=== PATIENT | male | born 1975 | race Caucasian/White ===

== ENCOUNTER 2019-08-09 15:52 | Emergency (ER) | payer MEDICAID, OTHER ==
[~2019-08-09] VITALS: Ht 190.5 cm; Wt 106.8 kg
[~2019-08-09 15:52] MED LIST: LIDOcaine 1% W/epiNEPHrine 1:100,000 20ml vial ONE
[2019-08-09 16:25] VITALS: BP 137/93
[2019-08-09] MEDS ORDERED: TETanus/Pertussis (Acell)/Diphther VAC/PF (Tdap-Adult) 0.5ml syringe IM ONE (17:25)
[2019-08-09] MEDS ORDERED: HYDROcodone/acetaminophen 5mg/325mg tablet PO ONE (17:25)
--- NOTE | 2019-08-09 18:02 | NUR ---
SET UP FOR PROCEDURE. PT SOAKING FINGER IN SALINE AND BETADINE ORDERED BY PROVIDER.
[2019-08-09] MEDS ORDERED: CEPH-572 PO (18:04)
[2019-08-09] MEDS ORDERED: HYDR-3965 PO (18:39)
== END 2019-08-09 19:14 | disposition home or self-care (01) ==
LOC: ER 15:53
DX: S62.630B Displaced fracture of distal phalanx of right index finger, initial encounter for open fracture (principal); Z79.899 Other long term (current) drug therapy; W26.8XXA Contact with other sharp object(s), not elsewhere classified, initial encounter; Y93.89 Activity, other specified; Y92.89 Other specified places as the place of occurrence of the external cause; Y99.8 Other external cause status
CPT/HCPCS: 29130; 73140; 90471; 99283

== ENCOUNTER 2020-01-15 20:16 | Emergency (ER) | payer MEDICAID, OTHER ==
[~2020-01-15] VITALS: Ht 190.5 cm; Wt 120.0 kg
[2020-01-15 20:19] VITALS: BP 138/91
[2020-01-15] MEDS ORDERED: DOXYCYCLINE 100MG CAPSULE PO STA (21:00)
== END 2020-01-15 21:31 | disposition home or self-care (01) ==
LOC: ER 20:16
DX: S20.369A Insect bite (nonvenomous) of unspecified front wall of thorax, initial encounter (principal); W57.XXXA Bitten or stung by nonvenomous insect and other nonvenomous arthropods, initial encounter; Y93.89 Activity, other specified; Y92.89 Other specified places as the place of occurrence of the external cause; Y99.9 Unspecified external cause status
CPT/HCPCS: 99283

== ENCOUNTER 2020-07-09 10:25 | Day surgery (SDC) | payer MEDICAID ==
[2020-07-09] VITALS (14 sets, daily range): BP systolic 115–140; BP diastolic 72–93
[~2020-07-09] VITALS: Ht 193 cm; Wt 115.3 kg
[~2020-07-09 10:25] MED LIST changes: +ALBU8.5H8 INH; +ALLO100T PO; +BUPIVAcaine/PF 2.5 mg/ml (0.25%) 30ml vial ONE; +LIDOcaine 1% 30ml preserv. free vial ONE; -LIDOcaine 1% W/epiNEPHrine 1:100,000 20ml vial ONE; +LISI-600 PO; +OMEP20CA15 PO; +albuterol 2.5 MG/3 ML nebule NEB ONE; +ceFAZolin 2gm in dextrose, iso 50 ML IV ONE; +famotidine 20mg tablet PO ONE; +ringers solution, lacted 1,000 ML IV SCH
[2020-07-09] MEDS ORDERED: TRAZ-256 PO ×2 (11:21→12:11)
[2020-07-09 11:55] LABS: BASOPHILS # (AUTO) 0.1 X10'3 (0-0.2); BASOPHILS % (AUTO) 0.7 % (0-1); EOSINOPHILS # (AUTO) 0.1 X10'3 (0-0.9); EOSINOPHILS % (AUTO) 0.7 % (0-6); LYMPHOCYTES # (AUTO) 1.1 X10'3 (1.1-4.8); LYMPHOCYTES % (AUTO) 14.1 % (21-51); MEAN CORPUSCULAR HEMOGLOBIN 35.1 PG (27.0-31.0); MEAN CORPUSCULAR VOLUME 103.3 FL (78-98); MEAN PLATELET VOLUME 6.9 FL (7.4-10.4); MONOCYTES # (AUTO) 0.7 X10'3 (0-0.9); MONOCYTES % (AUTO) 8.6 % (2-12); NEUTROPHILS # (AUTO) 5.9 X10'3 (1.8-7.7); NEUTROPHILS % (AUTO) 75.9 % (42-75); PRE OP HEMATOCRIT 38.5 % (42.0-52.0); PRE OP HEMOGLOBIN 13.1 g/dL (14.0-17.9); PRE OP PLATELET COUNT 298 X10'3 (140-440); RED BLOOD COUNT 3.73 X10'6 (4.70-6.10); RED CELL DISTRIBUTION WIDTH 13.2 % (11.5-14.5)
[2020-07-09 12:09] LABS: ALBUMIN 3.3 G/DL (3.4-5.0); ALKALINE PHOSPHATASE 47 IU/L (46-116); BLOOD UREA NITROGEN 33 MG/DL (7-18); BUN/CREATININE RATIO 14.9 (5.4-32.0); CALCIUM 8.4 MG/DL (8.5-10.1); CHLORIDE 105 MMOL/L (99-107); CREATININE 2.21 MG/DL (0.60-1.10); PRE OP ALT 15 U/L (30-65); PRE OP ANION GAP 11 (8-16); PRE OP AST 12 U/L (10-37); PRE OP BILIRUB, TOTAL 0.4 MG/DL (0.0-1.0); PRE OP GLUCOSE 99 MG/DL (70-104); PRE OP SODIUM 137 MMOL/L (135-145); TOTAL CARBON DIOXIDE 21.4 MMOL/L (24-32); TOTAL PROTEIN 6.5 G/DL (6.4-8.2); eGFR 32 ML/MIN
[2020-07-09] MEDS ORDERED: dexamethasone sod phosphate 10mg/ml inj ONE (12:17)
[2020-07-09] MEDS ORDERED: sevoflurane 250ml liquid IH ONE (12:17)
[2020-07-09] MEDS ORDERED: ondansetron/PF 4mg/2ml inj ONE (12:17)
[2020-07-09] MEDS ORDERED: midazolam 2 mg/2 ml injection ONE (12:31)
[2020-07-09] MEDS ORDERED: fentaNYL/PF 50MCG/1 ML 2ML syringe ONE (12:31)
[2020-07-09] MEDS ORDERED: meperidine/PF 25mg/ml syringe ONE (12:32)
[2020-07-09] MEDS ORDERED: LIDOcaine 2% (20mg/ml) 5ml vial ONE (12:36)
[2020-07-09] MEDS ORDERED: rocuronium 10mg/ml inj IV ONE (12:36)
[2020-07-09] MEDS ORDERED: propofol inj 20 ML IV ONE ×2 (12:36→12:41)
[2020-07-09] MEDS ORDERED: ringers solution, lacted 1,000 ML IV SCH (13:31)
[2020-07-09] MEDS ORDERED: morphine 4 MG/ML inj SYRINge IV PRN (13:35)
[2020-07-09] MEDS ORDERED: ondansetron/PF 4mg/2ml inj IV PRN (13:35)
[2020-07-09] MEDS ORDERED: meperidine/PF 25mg/ml syringe IV PRN ×2 (13:35)
[2020-07-09] MEDS ORDERED: proCHLORperazine 10 MG/2 ml inj IV PRN (13:35)
[2020-07-09] MEDS ORDERED: morphine 2 MG/ML inj. syringe IV PRN (13:35)
[2020-07-09] MEDS ORDERED: ketorolac trometh. 30mg/ml inj. ONE (13:47)
--- NOTE | 2020-07-09 13:57 | NUR ---
RECEIVED FROM OR VIA [facility] ACCOMPANIED BY ANESTHESIOLOGIST DR QUARLES, REPORT GIVEN. PT DROWSY BUT AROUSES AND DENIES PAIN AT THIS TIME. 20 GAUGE PIV R HAND PATENT AND RUNNING LR AT 100 ML/HR. LG BANDAID X3 CDI TO ABD, ABD SOFT, SKIN PINK AND WARM, BRISK CAP REFILL, LANG, RESTING COMFORTABLY
[2020-07-09] MEDS ORDERED: HYDROcodone/acetaminophen 5mg/325mg tablet PO PRN (14:05)
[2020-07-09] MEDS: meperidine/PF 25mg/ml syringe IV PRN ×2 (14:11→14:23)
--- NOTE | 2020-07-09 15:27 | NUR ---
PT AWAKE AND ALERT WITH PAIN LEVEL OF 4 AT THIS TIME. ABLE TO TOLERATE FLUIDS, DRESS SELF, AMBULATE TO BATHROOM AND VOID. 20 GAUGE PIV R HAND DC/D CATH TIP INTACT. LG BANDAID X3 CDI TO ABD, ABD SOFT, SKIN PINK AND WARM, BRISK CAP REFILL, LANG, VSS. DISCHARGE INSTRUCTIONS GIVEN AND PT VERBALIZED UNDER STANDING. TRANSPORTED VIA WHEELCHAIR TO SPOUSE IN PRIVATE VEHICLE TO HOME.
== END 2020-07-09 15:27 | disposition home or self-care (01) ==
LOC: PAS 10:25
PROVIDERS: ATTEND Surgery
DX: K40.90 Unilateral inguinal hernia, without obstruction or gangrene, not specified as recurrent (principal); K43.9 Ventral hernia without obstruction or gangrene; I10 Essential (primary) hypertension; K21.9 Gastro-esophageal reflux disease without esophagitis; J45.909 Unspecified asthma, uncomplicated; M10.9 Gout, unspecified; E66.9 Obesity, unspecified; Z68.30 Body mass index [BMI] 30.0-30.9, adult; Z79.899 Other long term (current) drug therapy; F17.210 Nicotine dependence, cigarettes, uncomplicated; F12.90 Cannabis use, unspecified, uncomplicated; Z20.828 Contact with and (suspected) exposure to other viral communicable diseases
CPT/HCPCS: 36415; 49560; 49568; 49650; 80053; 82948; 85025; 87635; 93005; 94640; 94760; C1781; J1100; J1885; J2001; J2175; J2250; J2405; J2704; J3010; J3490; J7120; S2900; A4215; A4618

== ENCOUNTER 2021-06-21 11:09 | Emergency (ER) | payer MEDICAID ==
[~2021-06-21] VITALS: Ht 190.5 cm; Wt 91.2 kg
[~2021-06-21 11:09] MED LIST changes: +ALBU8.5H17 INH; -ALBU8.5H8 INH; -BUPIVAcaine/PF 2.5 mg/ml (0.25%) 30ml vial ONE; -LIDOcaine 1% 30ml preserv. free vial ONE; -LISI-600 PO; +LISI20TA28 PO; +TRAZ-256 PO; -albuterol 2.5 MG/3 ML nebule NEB ONE; -ceFAZolin 2gm in dextrose, iso 50 ML IV ONE; -famotidine 20mg tablet PO ONE; -ringers solution, lacted 1,000 ML IV SCH
[2021-06-21 12:16] LABS: CLARITY,URINE CLEAR (Clear); COLOR,URINE YELLOW (Yellow); GLUCOSE, URINE NEGATIVE (Neg); KETONES,URINE NEGATIVE (Neg); LEUKOCYTE ESTERASE ,URINE NEGATIVE (Neg); NITRITES, URINE NEGATIVE (Neg); OCCULT BLOOD,URINE TRACE-INTACT (Neg); PROTEIN,URINE >=300 mg/dl (Neg)
[2021-06-21 12:17] LABS: UA COLLECTION TYPE CLN CATCH MIDSTREAM
[2021-06-21 12:18] LABS: BASOPHILS % (AUTO) 0.3 % (0-1); EOSINOPHILS # (AUTO) 0.1 X10'3 (0-0.9); EOSINOPHILS % (AUTO) 0.9 % (0-6); HEMATOCRIT 41.3 % (42.0-52.0); HEMOGLOBIN 14.1 g/dl (14.0-17.9); LYMPHOCYTES # (AUTO) 0.8 X10'3 (1.1-4.8); LYMPHOCYTES % (AUTO) 9.4 % (21-51); MEAN CORPUSCULAR HEMOGLOBIN 36.6 PG (27.0-31.0); MEAN CORPUSCULAR HGB CONC 34.2 g/dL (33.0-36.5); MEAN CORPUSCULAR VOLUME 107.1 FL (78-98); MEAN PLATELET VOLUME 6.8 FL (7.4-10.4); MONOCYTES # (AUTO) 0.7 X10'3 (0-0.9); MONOCYTES % (AUTO) 8.6 % (2-12); NEUTROPHILS # (AUTO) 6.9 X10'3 (1.8-7.7); NEUTROPHILS % (AUTO) 80.8 % (42-75); PLATELET COUNT 314 X10'3 (140-440); RED BLOOD COUNT 3.85 X10'6 (4.70-6.10); RED CELL DISTRIBUTION WIDTH 13.3 % (11.5-14.5); WHITE BLOOD COUNT 8.6 X10'3 (4.5-11.0)
[2021-06-21 12:21] LABS: BACTERIA,URINE NONE SEEN /HPF (Neg); FINE GRANULAR CAST 0-3 /LPF (NEGATIVE); HYALINE CASTS 0-3 /LPF (NEGATIVE); MUCUS STRANDS NONE SEEN /LPF (Neg); RBC,URINE 0-2 /HPF (0-2); SQUAMOUS EPITHELIAL CELL,UR FEW /LPF (FEW); WBC,URINE 0-4 /HPF (0-4)
[2021-06-21 12:31] LABS: ALANINE AMINOTRANSFERASE 19 U/L (12-78); ALBUMIN 3.3 G/DL (3.4-5.0); ALKALINE PHOSPHATASE 46 IU/L (46-116); ANION GAP 10 (8-16); ASPARTATE AMINO TRANSFERASE 15 U/L (10-37); BILIRUBIN,TOTAL 0.4 MG/DL (0.1-1.0); BLOOD UREA NITROGEN 20 MG/DL (7-18); BUN/CREATININE RATIO 8.8 (5.4-32.0); CALCIUM 8.4 MG/DL (8.5-10.1); CHLORIDE 104 MMOL/L (99-107); CREATININE 2.28 MG/DL (0.60-1.10); GLUCOSE 110 MG/DL (70-104); LIPASE 288 U/L (73-393); POTASSIUM 4.5 MMOL/L (3.5-5.1); SODIUM 139 MMOL/L (135-145); TOTAL CARBON DIOXIDE 25.4 MMOL/L (24-32); TOTAL PROTEIN 6.7 G/DL (6.4-8.2); eGFR 31 ML/MIN
[2021-06-21 16:14] VITALS: BP 147/107
[2021-06-21] MEDS ORDERED: LIDOcaine Viscous 15ml cup MM ONE (16:35)
[2021-06-21] MEDS ORDERED: mag hydrox/Alum hydrox/simeth 30ml oral suspension PO ONE (16:35)
[2021-06-21] MEDS ORDERED: normal saline 1000ml 1,000 ML IV ONE (16:35)
[2021-06-21] MEDS ORDERED: pantoprazole 40mg Tablet.DR PO ONE (16:35)
[2021-06-21] MEDS ORDERED: ondansetron 4mg rapidly disintigrating tab PO ONE (16:35)
== END 2021-06-21 17:41 | disposition home or self-care (01) ==
LOC: ER 11:09
DX: R10.84 Generalized abdominal pain (principal); R14.0 Abdominal distension (gaseous); Z87.19 Personal history of other diseases of the digestive system; Z79.899 Other long term (current) drug therapy
CPT/HCPCS: 36415; 74176; 80053; 81001; 83690; 85025; 96360; 99284; J7030

== ENCOUNTER 2022-04-30 13:49 | Inpatient (IN) | payer MEDICAID ==
[~2022-04-30] VITALS: Ht 190.5 cm; Wt 101.0 kg
[2022-04-30] MEDS ORDERED: normal saline 1000ML IV soln IVB ONE ×2 (15:40→17:00)
[2022-04-30 16:07] LABS: CLARITY,URINE CLEAR (Clear); COLOR,URINE YELLOW (Yellow); GLUCOSE, URINE NEGATIVE (Neg); KETONES,URINE NEGATIVE (Neg); LEUKOCYTE ESTERASE ,URINE NEGATIVE (Neg); NITRITES, URINE NEGATIVE (Neg); OCCULT BLOOD,URINE SMALL (Neg); PH,URINE 5.5 (4.8-8.0); PROTEIN,URINE 100 mg/dl (Neg); UROBILINOGEN,URINE 0.2 E.U/dL (0.2-1.0)
[2022-04-30 16:11] LABS: UA COLLECTION TYPE NON-SPECIFIED
[2022-04-30 16:17] LABS: HYALINE CASTS 0-3 /LPF (NEGATIVE); MUCUS STRANDS FEW /LPF (Neg)
[2022-04-30 16:19] LABS: BACTERIA,URINE FEW /HPF (Neg); RBC,URINE 0-2 /HPF (0-2); SQUAMOUS EPITHELIAL CELL,UR MODERATE /LPF (FEW)
[2022-04-30 16:27] LABS: BASOPHILS % (AUTO) 0.4 % (0-1); EOSINOPHILS # (AUTO) 0.1 X10'3 (0-0.9); EOSINOPHILS % (AUTO) 1.5 % (0-6); HEMATOCRIT 36.4 % (42.0-52.0); HEMOGLOBIN 12.6 g/dl (14.0-17.9); LYMPHOCYTES # (AUTO) 1.5 X10'3 (1.1-4.8); LYMPHOCYTES % (AUTO) 18.9 % (21-51); MEAN CORPUSCULAR HGB CONC 34.6 g/dL (33.0-36.5); MEAN CORPUSCULAR VOLUME 104.2 FL (78-98); MEAN PLATELET VOLUME 6.7 FL (7.4-10.4); MONOCYTES % (AUTO) 12.9 % (2-12); NEUTROPHILS # (AUTO) 5.1 X10'3 (1.8-7.7); NEUTROPHILS % (AUTO) 66.3 % (42-75); PLATELET COUNT 247 X10'3 (140-440); WHITE BLOOD COUNT 7.7 X10'3 (4.5-11.0)
[2022-04-30 16:42] LABS: ALANINE AMINOTRANSFERASE 25 U/L (12-78); ALBUMIN 3.6 G/DL (3.4-5.0); ALBUMIN/GLOBULIN RATIO 1.1 (1.1-1.5); ALKALINE PHOSPHATASE 49 IU/L (46-116); ANION GAP 13 (8-16); ASPARTATE AMINO TRANSFERASE 69 U/L (10-37); BILIRUBIN,TOTAL 0.3 MG/DL (0.1-1.0); BLOOD UREA NITROGEN 56 MG/DL (7-18); BUN/CREATININE RATIO 11.2 (5.4-32.0); CALCIUM 8.7 MG/DL (8.5-10.1); CHLORIDE 104 MMOL/L (99-107); CREATININE 4.98 MG/DL (0.60-1.10); GLUCOSE 104 MG/DL (70-104); MAGNESIUM 2.2 MG/DL (1.5-2.4); POTASSIUM 5.1 MMOL/L (3.5-5.1); SODIUM 138 MMOL/L (135-145); TOTAL CARBON DIOXIDE 20.8 MMOL/L (24-32); TOTAL PROTEIN 6.8 G/DL (6.4-8.2); eGFR 13 ML/MIN
[2022-04-30] MEDS ORDERED: TRAZ-256 PO (18:08)
[2022-04-30] MEDS ORDERED: ALBU8.5H17 IH (18:08)
[2022-04-30] MEDS ORDERED: LISI20TA28 PO (18:08)
[2022-04-30] MEDS ORDERED: OMEP40CA21 PO (18:08)
[2022-04-30] MEDS ORDERED: ALLO100T56 PO (18:08)
[2022-04-30 18:31] LABS: CREATINE KINASE 4591 U/L (39-308)
[2022-04-30 19:09] LABS: URINE AMPHETAMINE SCREEN NEGATIVE (Neg); URINE BARBITUATE SCREEN NEGATIVE (Neg); URINE BENZODIAZEPINES SCREEN NEGATIVE (Neg); URINE CANNABINOID SCREEN POSITIVE (Neg); URINE COCAINE SCREEN NEGATIVE (Neg); URINE METHADONE SCREEN NEGATIVE (Neg); URINE OPIATE SCREEN NEGATIVE (Neg); URINE PHENCYCLIDINE SCREEN NEGATIVE (Neg)
[2022-04-30] MEDS ORDERED: magnesium hydroxide 30ml (MOM) UD suspension PO PRN (19:45)
[2022-04-30] MEDS ORDERED: HYDROcodone/acetaminophen 5mg/325mg tablet PO PRN (19:45)
[2022-04-30] MEDS ORDERED: potassium CL 10mEq/100ml bag 100 ML IV PRN (19:45)
[2022-04-30] MEDS ORDERED: magnesium Cl slow-release 64mg tablet PO PRN (19:45)
[2022-04-30] MEDS ORDERED: mag hydrox/Alum hydrox/simeth 30ml oral suspension PO PRN (19:45)
[2022-04-30] MEDS ORDERED: diphenhydrAMINE 25mg capsule PO PRN (19:45)
[2022-04-30] MEDS ORDERED: magnesium 2GM in 50ml NS 50 ML IV PRN (19:45)
[2022-04-30] MEDS ORDERED: magnesium 4gm in 100ml NS 100 ML IV PRN (19:45)
[2022-04-30] MEDS: normal saline 1000ml 1,000 ML IV SCH (19:45)
[2022-04-30] MEDS ORDERED: HYDROcodone/acetaminophen 10/325mg tab PO PRN (19:45)
[2022-04-30] MEDS ORDERED: POTASSIUM BICARB 20meq eff tab 20 MEQ TABLET.EFF PO PRN ×2 (19:45)
[2022-04-30] MEDS ORDERED: acetaminophen 325mg tablet PO PRN ×2 (19:45)
[2022-04-30] MEDS ORDERED: ondansetron/PF 4mg/2ml inj IV PRN (19:45)
[2022-04-30] MEDS: K and/or MAG REPLACEMENT MC SCH (20:00)
[2022-04-30] MEDS ORDERED: albuterol 2.5 MG/3 ML nebule NEB PRN (20:05)
[2022-04-30 20:12] LABS: HEMOGLOBIN A1C 5.3 % (4.5-6.2)
[2022-04-30 20:14] LABS: TOTAL PROTEIN,URINE RANDOM 91.1 MG/DL
[2022-04-30 20:26] LABS: CLARITY,URINE CLEAR (Clear); COLOR,URINE YELLOW (Yellow); GLUCOSE, URINE NEGATIVE (Neg); KETONES,URINE NEGATIVE (Neg); LEUKOCYTE ESTERASE ,URINE NEGATIVE (Neg); NITRITES, URINE NEGATIVE (Neg); OCCULT BLOOD,URINE MODERATE (Neg); PROTEIN,URINE 30 mg/dl (Neg); UROBILINOGEN,URINE 0.2 E.U/dL (0.2-1.0)
[2022-04-30 20:48] LABS: UA COLLECTION TYPE CLN CATCH MIDSTREAM
[2022-04-30 20:50] LABS: BACTERIA,URINE NONE SEEN /HPF (Neg); RBC,URINE 0-2 /HPF (0-2); SQUAMOUS EPITHELIAL CELL,UR NONE SEEN /LPF (FEW); WBC,URINE 0-4 /HPF (0-4)
[2022-04-30] MEDS: docusate sod 100mg capsule PO SCH (20:58)
[2022-04-30] MEDS: traZODone 50mg tablet PO SCH (21:05)
[2022-04-30 21:33] LABS: UA EOSINOPHILS NO EOS /HPF
[2022-05-01 02:00] VITALS: BP 144/102
[2022-05-01 06:00] VITALS: BP 148/96
--- NOTE | 2022-05-01 06:30 | NUR ---
Patient in room PCU 3013. I have received report from LYNSEY Dickerson and had the opportunity to ask questions and assume patient care.
[2022-05-01] MEDS: heparin, porcine 5000 units/ml vial SQ SCH ×3 (07:12→16:58)
[2022-05-01] MEDS: normal saline 1000ml 1,000 ML IV SCH ×4 (07:12→16:57)
[2022-05-01 08:02] LABS: BASOPHILS % (AUTO) 0.5 % (0-1); EOSINOPHILS # (AUTO) 0.1 X10'3 (0-0.9); EOSINOPHILS % (AUTO) 2.5 % (0-6); HEMATOCRIT 35.5 % (42.0-52.0); HEMOGLOBIN 12.3 g/dl (14.0-17.9); LYMPHOCYTES # (AUTO) 1.1 X10'3 (1.1-4.8); LYMPHOCYTES % (AUTO) 19.6 % (21-51); MEAN CORPUSCULAR HEMOGLOBIN 36.5 PG (27.0-31.0); MEAN CORPUSCULAR HGB CONC 34.5 g/dL (33.0-36.5); MEAN CORPUSCULAR VOLUME 105.5 FL (78-98); MEAN PLATELET VOLUME 7.2 FL (7.4-10.4); MONOCYTES # (AUTO) 0.7 X10'3 (0-0.9); MONOCYTES % (AUTO) 12.6 % (2-12); NEUTROPHILS # (AUTO) 3.7 X10'3 (1.8-7.7); NEUTROPHILS % (AUTO) 64.8 % (42-75); PLATELET COUNT 230 X10'3 (140-440); RED BLOOD COUNT 3.36 X10'6 (4.70-6.10); RED CELL DISTRIBUTION WIDTH 13.2 % (11.5-14.5); WHITE BLOOD COUNT 5.7 X10'3 (4.5-11.0)
[2022-05-01 08:30] LABS: ALANINE AMINOTRANSFERASE 25 U/L (12-78); ALBUMIN 3.3 G/DL (3.4-5.0); ALBUMIN/GLOBULIN RATIO 1.1 (1.1-1.5); ALKALINE PHOSPHATASE 37 IU/L (46-116); ANION GAP 15 (8-16); ASPARTATE AMINO TRANSFERASE 68 U/L (10-37); BILIRUBIN,TOTAL 0.6 MG/DL (0.1-1.0); BLOOD UREA NITROGEN 48 MG/DL (7-18); CALCIUM 8.2 MG/DL (8.5-10.1); CHLORIDE 110 MMOL/L (99-107); CHOL/HDL RATIO 1.7 (0.00-4.99); CHOLESTEROL 243 MG/DL (0-200); CREATININE 4.01 MG/DL (0.60-1.10); GLUCOSE 94 MG/DL (70-104); HDL CHOLESTEROL 142 MG/DL (35-60); LDL CHOLESTEROL 65 MG/DL (50-100); MAGNESIUM 1.8 MG/DL (1.5-2.4); PHOSPHORUS 4.3 MG/DL (2.3-4.5); POTASSIUM 4.4 MMOL/L (3.5-5.1); SODIUM 142 MMOL/L (135-145); TOTAL PROTEIN 6.2 G/DL (6.4-8.2); TRIGLYCERIDES 99 MG/DL (20-135); eGFR 16 ML/MIN
[2022-05-01 10:00] VITALS: BP 153/95
[2022-05-01] MEDS: K and/or MAG REPLACEMENT MC SCH ×2 (10:49→20:00)
[2022-05-01] MEDS: docusate sod 100mg capsule PO SCH ×2 (10:49→20:00)
[2022-05-01] MEDS: pantoprazole 40mg Tablet.DR PO SCH (12:08)
[2022-05-01] MEDS: amLODIPine 5mg tablet PO SCH (12:08)
[2022-05-01 14:00] VITALS: BP 147/95
[2022-05-01 18:00] VITALS: BP 124/63
--- NOTE | 2022-05-01 18:30 | NUR ---
Problems reprioritized. Patient report given, questions answered & plan of care reviewed with LYNSEY Dickerson.
[2022-05-01] MEDS ORDERED: LORazepam 2 mg/ml vial IV PRN (19:55)
[2022-05-01] MEDS ORDERED: haloperidol 5mg tablet PO PRN (19:55)
[2022-05-01] MEDS ORDERED: haloperidol lactate 5mg/ml inj IM PRN (19:55)
[2022-05-01] MEDS ORDERED: LORazepam 1 MG tablet PO PRN (19:55)
[2022-05-01] MEDS ORDERED: thiamine 100mg/ml 2ml inj. IV SCH (21:00)
[2022-05-01] MEDS: traZODone 50mg tablet PO SCH (21:16)
[2022-05-01] MEDS: nicotine 14mg patch - 24hr TD SCH (21:18)
[2022-05-01 22:00] VITALS: BP 142/91
[2022-05-02] MEDS: normal saline 1000ml 1,000 ML IV SCH ×2 (00:01→07:54)
[2022-05-02] MEDS: heparin, porcine 5000 units/ml vial SQ SCH ×2 (00:01→07:54)
[2022-05-02 02:00] VITALS: BP 138/92
[2022-05-02 06:00] VITALS: BP 160/111
--- NOTE | 2022-05-02 06:10 | NUR ---
Patient in room PCU 3013. I have received report from LYNSEY Dickerson and had the opportunity to ask questions and assume patient care.
[2022-05-02 07:22] LABS: BASOPHILS % (AUTO) 0.6 % (0-1); EOSINOPHILS # (AUTO) 0.1 X10'3 (0-0.9); EOSINOPHILS % (AUTO) 2.4 % (0-6); HEMATOCRIT 36.9 % (42.0-52.0); HEMOGLOBIN 12.4 g/dl (14.0-17.9); LYMPHOCYTES # (AUTO) 1.3 X10'3 (1.1-4.8); LYMPHOCYTES % (AUTO) 22.5 % (21-51); MEAN CORPUSCULAR HEMOGLOBIN 35.9 PG (27.0-31.0); MEAN CORPUSCULAR HGB CONC 33.7 g/dL (33.0-36.5); MEAN CORPUSCULAR VOLUME 106.3 FL (78-98); MEAN PLATELET VOLUME 7.4 FL (7.4-10.4); MONOCYTES # (AUTO) 0.5 X10'3 (0-0.9); MONOCYTES % (AUTO) 8.3 % (2-12); NEUTROPHILS # (AUTO) 3.8 X10'3 (1.8-7.7); NEUTROPHILS % (AUTO) 66.2 % (42-75); PLATELET COUNT 229 X10'3 (140-440); RED BLOOD COUNT 3.47 X10'6 (4.70-6.10); RED CELL DISTRIBUTION WIDTH 12.9 % (11.5-14.5); WHITE BLOOD COUNT 5.7 X10'3 (4.5-11.0)
[2022-05-02] MEDS: docusate sod 100mg capsule PO SCH (07:32)
[2022-05-02] MEDS: amLODIPine 5mg tablet PO SCH (07:52)
[2022-05-02] MEDS: nicotine 14mg patch - 24hr TD SCH (07:53)
[2022-05-02] MEDS: pantoprazole 40mg Tablet.DR PO SCH (07:53)
[2022-05-02 07:54] LABS: ALANINE AMINOTRANSFERASE 27 U/L (12-78); ALBUMIN 3.1 G/DL (3.4-5.0); ALKALINE PHOSPHATASE 35 IU/L (46-116); ANION GAP 15 (8-16); ASPARTATE AMINO TRANSFERASE 74 U/L (10-37); BILIRUBIN,TOTAL 0.4 MG/DL (0.1-1.0); BLOOD UREA NITROGEN 35 MG/DL (7-18); BUN/CREATININE RATIO 11.6 (5.4-32.0); CALCIUM 8.3 MG/DL (8.5-10.1); CHLORIDE 110 MMOL/L (99-107); CREATININE 3.01 MG/DL (0.60-1.10); GLUCOSE 113 MG/DL (70-104); LIPASE 97 U/L (73-393); MAGNESIUM 1.4 MG/DL (1.5-2.4); PHOSPHORUS 3.2 MG/DL (2.3-4.5); POTASSIUM 4.4 MMOL/L (3.5-5.1); SODIUM 142 MMOL/L (135-145); TOTAL CARBON DIOXIDE 17.3 MMOL/L (24-32); TOTAL PROTEIN 6.3 G/DL (6.4-8.2); eGFR 22 ML/MIN
[2022-05-02 07:57] LABS: CREATINE KINASE 3808 U/L (39-308)
[2022-05-02] MEDS ORDERED: thiamine 100mg tablet PO SCH ×2 (08:00→13:00)
[2022-05-02] MEDS ORDERED: folic acid 1mg/0.2ml inj IV SCH (08:00)
[2022-05-02] MEDS ORDERED: multivitamins, therapeutics tablet PO SCH (08:00)
[2022-05-02] MEDS: folic acid 1mg tablet PO SCH ×2 (08:14→08:20)
[2022-05-02] MEDS: K and/or MAG REPLACEMENT MC SCH (08:22)
[2022-05-02 10:00] VITALS: BP 160/108
--- NOTE | 2022-05-02 14:10 | NUR ---
Pt states he wants to leave AMA. notified.
--- NOTE | 2022-05-02 14:25 | NUR ---
Pt leaving AMA. IV DC'd, tip intact. All belongings sent w/pt. Pt independently ambulated himself out of the hospital.
[2022-05-06] MEDS ORDERED: thiamine 100mg tablet PO SCH (08:00)
== END 2022-05-02 14:56 | disposition left against medical advice (07) | DRG 351 ==
LOC: ER 13:50 → UNDOADMIN 19:41 → ED HOLD 19:41 → PCU 3S 23:50
PROVIDERS: ADMIT Family Medicine; ATTEND Family Medicine
PROC: 5A09357 Assistance with Respiratory Ventilation, Less than 24 Consecutive Hours, Continuous Positive Airway Pressure (ICD-10-PCS; principal; 2022-05-01)
DX: M62.82 Rhabdomyolysis (principal); N17.0 Acute kidney failure with tubular necrosis; Q61.3 Polycystic kidney, unspecified; D53.9 Nutritional anemia, unspecified; Z20.822 Contact with and (suspected) exposure to COVID-19; F32.A Depression, unspecified; K21.9 Gastro-esophageal reflux disease without esophagitis; I10 Essential (primary) hypertension; E86.0 Dehydration; F10.20 Alcohol dependence, uncomplicated; F12.10 Cannabis abuse, uncomplicated; F17.210 Nicotine dependence, cigarettes, uncomplicated; G47.33 Obstructive sleep apnea (adult) (pediatric); J44.9 Chronic obstructive pulmonary disease, unspecified; Z53.29 Procedure and treatment not carried out because of patient's decision for other reasons; Z82.71 Family history of polycystic kidney; Z79.899 Other long term (current) drug therapy; Z71.6 Tobacco abuse counseling; Z71.41 Alcohol abuse counseling and surveillance of alcoholic; Z71.51 Drug abuse counseling and surveillance of drug abuser
CPT/HCPCS: 36415; 76770; 80053; 80061; 80305; 81001; 82550; 82570; 83036; 83690; 83735; 84100; 84145; 84156; 84295; 85025; 85610; 87077; 87081; 87088; 87207; 87635; 96360; 96361; 99285; C9803; G0378; J1644; J3411; J7030

== ENCOUNTER 2022-05-03 15:32 | Emergency (ER) | payer MEDICAID ==
[~2022-05-03] VITALS: Ht 190.5 cm; Wt 102.3 kg
[~2022-05-03 15:32] MED LIST changes: +ALBU8.5H17 IH; -ALBU8.5H17 INH; -ALLO100T PO; +ALLO100T56 PO; -OMEP20CA15 PO; +OMEP40CA21 PO
[2022-05-03 16:59] LABS: ALANINE AMINOTRANSFERASE 28 U/L (12-78); ALBUMIN 3.3 G/DL (3.4-5.0); ALKALINE PHOSPHATASE 42 IU/L (46-116); ANION GAP 10 (8-16); ASPARTATE AMINO TRANSFERASE 64 U/L (10-37); BILIRUBIN,TOTAL 0.2 MG/DL (0.1-1.0); BLOOD UREA NITROGEN 28 MG/DL (7-18); BUN/CREATININE RATIO 9.7 (5.4-32.0); CALCIUM 8.7 MG/DL (8.5-10.1); CHLORIDE 105 MMOL/L (99-107); GLUCOSE 106 MG/DL (70-104); POTASSIUM 4.5 MMOL/L (3.5-5.1); SODIUM 137 MMOL/L (135-145); TOTAL CARBON DIOXIDE 21.9 MMOL/L (24-32); TOTAL PROTEIN 6.5 G/DL (6.4-8.2); eGFR 23 ML/MIN
[2022-05-03 18:27] VITALS: BP 160/105
== END 2022-05-03 18:29 | disposition home or self-care (01) ==
LOC: ER 15:32
DX: I12.9 Hypertensive chronic kidney disease with stage 1 through stage 4 chronic kidney disease, or unspecified chronic kidney disease (principal); N18.9 Chronic kidney disease, unspecified
CPT/HCPCS: 36415; 80053; 93005; 99284

== ENCOUNTER 2023-02-03 10:27 | Day surgery (SDC) | payer MEDICAID ==
[2023-01-27 15:37] LABS: BASOPHILS % (AUTO) 0.5 % (0-1); EOSINOPHILS # (AUTO) 0.2 X10'3 (0-0.9); EOSINOPHILS % (AUTO) 2.6 % (0-6); LYMPHOCYTES # (AUTO) 1.3 X10'3 (1.1-4.8); LYMPHOCYTES % (AUTO) 21.1 % (21-51); MEAN CORPUSCULAR HEMOGLOBIN 34.7 PG (27.0-31.0); MEAN CORPUSCULAR VOLUME 102.3 FL (78-98); MEAN PLATELET VOLUME 6.8 FL (7.4-10.4); MONOCYTES # (AUTO) 0.8 X10'3 (0-0.9); MONOCYTES % (AUTO) 12.7 % (2-12); NEUTROPHILS % (AUTO) 63.1 % (42-75); PRE OP HEMATOCRIT 30.8 % (42.0-52.0); PRE OP PLATELET COUNT 235 X10'3 (140-440); RED BLOOD COUNT 3.01 X10'6 (4.70-6.10); RED CELL DISTRIBUTION WIDTH 13.3 % (11.5-14.5)
[2023-01-27 15:46] LABS: PRE OP HEMOGLOBIN 10.5 g/dL (14.0-17.9)
[2023-01-27 15:48] LABS: ALBUMIN 3.4 G/DL (3.4-5.0); ALBUMIN/GLOBULIN RATIO 1.1 (1.1-1.5); ALKALINE PHOSPHATASE 65 IU/L (46-116); BLOOD UREA NITROGEN 85 MG/DL (7-18); BUN/CREATININE RATIO 14.5 (10.0-20.0); CALCIUM 8.5 MG/DL (8.5-10.1); CHLORIDE 107 MMOL/L (99-107); CREATININE 5.88 MG/DL (0.60-1.10); PRE OP ALT 16 U/L (30-65); PRE OP ANION GAP 11 (8-16); PRE OP AST 21 U/L (10-37); PRE OP BILIRUB, TOTAL 0.2 MG/DL (0.0-1.0); PRE OP GLUCOSE 100 MG/DL (70-104); PRE OP POTASSIUM 4.9 MMOL/L (3.4-5.1); PRE OP SODIUM 139 MMOL/L (135-145); TOTAL CARBON DIOXIDE 21.4 MMOL/L (24-32); TOTAL PROTEIN 6.6 G/DL (6.4-8.2); eGFR 10 ML/MIN
[2023-01-27 15:59] LABS: CLARITY,URINE CLEAR (Clear); COLOR,URINE STRAW (Yellow); GLUCOSE, URINE NEGATIVE (Neg); KETONES,URINE NEGATIVE (Neg); LEUKOCYTE ESTERASE ,URINE NEGATIVE (Neg); NITRITES, URINE NEGATIVE (Neg); OCCULT BLOOD,URINE SMALL (Neg); PH,URINE 5.5 (4.8-8.0); PROTEIN,URINE 100 mg/dl (Neg); UA COLLECTION TYPE CLN CATCH MIDSTREAM; UROBILINOGEN,URINE 0.2 E.U/dL (0.2-1.0)
[2023-01-27 16:11] LABS: BACTERIA,URINE NONE SEEN /HPF (Neg); RBC,URINE 0-2 /HPF (0-2); WBC,URINE 0-4 /HPF (0-4)
[2023-01-27 16:12] LABS: SQUAMOUS EPITHELIAL CELL,UR NONE SEEN /LPF (FEW)
[2023-02-03] VITALS (14 sets, daily range): BP systolic 134–167; BP diastolic 82–108
[~2023-02-03] VITALS: Ht 190.5 cm; Wt 110.0 kg
[~2023-02-03 10:27] MED LIST changes: -ALBU8.5H17 IH; +DOCUMENT DATE & TIME OF BETA-BLOCKER PO ONE; -LISI20TA28 PO; +LISI40TA13 PO; +METO-395 PO; +cefazolin 2gm/D5W 100mL 100 ML IV ONE; +famotidine 20mg tablet PO ONE; +normal saline 1000ml 500 ML IV SCH
[2023-02-03 12:01] LABS: BASOPHILS % (AUTO) 0.3 % (0-1); EOSINOPHILS # (AUTO) 0.1 X10'3 (0-0.9); EOSINOPHILS % (AUTO) 1.5 % (0-6); HEMATOCRIT 32.4 % (42.0-52.0); HEMOGLOBIN 10.7 g/dl (14.0-17.9); LYMPHOCYTES # (AUTO) 0.8 X10'3 (1.1-4.8); LYMPHOCYTES % (AUTO) 13.4 % (21-51); MEAN CORPUSCULAR HEMOGLOBIN 33.7 PG (27.0-31.0); MEAN CORPUSCULAR VOLUME 102.2 FL (78-98); MEAN PLATELET VOLUME 6.9 FL (7.4-10.4); MONOCYTES # (AUTO) 0.7 X10'3 (0-0.9); MONOCYTES % (AUTO) 12.5 % (2-12); NEUTROPHILS # (AUTO) 4.1 X10'3 (1.8-7.7); NEUTROPHILS % (AUTO) 72.3 % (42-75); PLATELET COUNT 211 X10'3 (140-440); RED BLOOD COUNT 3.17 X10'6 (4.70-6.10); RED CELL DISTRIBUTION WIDTH 13.3 % (11.5-14.5); WHITE BLOOD COUNT 5.7 X10'3 (4.5-11.0)
[2023-02-03 12:15] LABS: ALANINE AMINOTRANSFERASE 16 U/L (12-78); ALBUMIN 3.4 G/DL (3.4-5.0); ALKALINE PHOSPHATASE 45 IU/L (46-116); ANION GAP 12 (8-16); ASPARTATE AMINO TRANSFERASE 19 U/L (10-37); BILIRUBIN,TOTAL 0.3 MG/DL (0.1-1.0); BLOOD UREA NITROGEN 75 MG/DL (7-18); BUN/CREATININE RATIO 13.4 (10.0-20.0); CHLORIDE 103 MMOL/L (99-107); CREATININE 5.58 MG/DL (0.60-1.10); GLUCOSE 121 MG/DL (70-104); POTASSIUM 4.6 MMOL/L (3.5-5.1); SODIUM 134 MMOL/L (135-145); TOTAL CARBON DIOXIDE 18.7 MMOL/L (24-32); TOTAL PROTEIN 6.9 G/DL (6.4-8.2); eGFR 11 ML/MIN
[2023-02-03] MEDS ORDERED: meperidine/PF 25mg/ml syringe IV PRN ×2 (12:25)
[2023-02-03] MEDS ORDERED: ondansetron/PF 4mg/2ml inj IV PRN (12:25)
[2023-02-03] MEDS ORDERED: ringers solution, lacted 1,000 ML IV SCH (12:25)
[2023-02-03] MEDS ORDERED: proCHLORperazine 10 MG/2 ml inj IV PRN (12:25)
[2023-02-03] MEDS ORDERED: morphine 2 MG/ML inj. syringe IV PRN (12:25)
[2023-02-03] MEDS ORDERED: BUPIVAcaine/PF 2.5 mg/ml (0.25%) 30ml vial ONE (13:26)
[2023-02-03] MEDS ORDERED: midazolam 1 mg/ML 2ml injection ONE (13:33)
[2023-02-03] MEDS ORDERED: fentaNYL/PF 50MCG/1 ML 2ML syringe ONE ×2 (13:33→14:05)
[2023-02-03] MEDS ORDERED: sevoflurane 250ml liquid IH ONE (13:34)
[2023-02-03] MEDS ORDERED: glycopyrrolate 0.2mg/ml inj ONE (13:34)
[2023-02-03] MEDS ORDERED: neostigmine methylsulfate 1 MG/ML 10ml vial ONE (13:34)
[2023-02-03] MEDS ORDERED: rocuronium 10mg/ml inj IV ONE ×2 (13:34→14:05)
[2023-02-03] MEDS ORDERED: propofol inj 20 ML IV ONE (13:37)
[2023-02-03] MEDS ORDERED: acetaminophen 1,000mg/100ml IV 100 ML IV ONE (13:51)
[2023-02-03] MEDS ORDERED: LIDOcaine 2% (20mg/ml) 5ml vial ONE (14:05)
[2023-02-03] MEDS ORDERED: ondansetron/PF 4mg/2ml inj ONE (14:05)
[2023-02-03] MEDS ORDERED: dexamethasone sod phosphate 4mg/ml inj. ONE (14:05)
[2023-02-03] MEDS ORDERED: heparin sodium, porcine/PF 100unit/ml 5ML syringe ONE (14:34)
[2023-02-03] MEDS ORDERED: mupirocin 2% ointment 22GM ONE (14:41)
[2023-02-03] MEDS ORDERED: meperidine/PF 25mg/ml syringe ONE (14:51)
--- NOTE | 2023-02-03 14:52 | NUR ---
Received from OR via [facility] TO RO[facility] 8 RECOVERY, accompanied by Anesthesiologist DR MONTIEL and report given by Anesthesiolgist. PT PRESENTS WITH 20G LEFT HAND, ABD DRESSING PJ, VSS. Addendum: 02/03/23 at 1513 by Monica Randall RN, RN Amended: Links added.
[2023-02-03] MEDS: morphine 4 MG/ML inj SYRINge IV PRN ×4 (15:05→15:19)
[2023-02-03] MEDS: meperidine/PF 25mg/ml syringe IV PRN ×3 (15:24→15:37)
[2023-02-03] MEDS ORDERED: HYDROcodone/acetaminophen 10/325mg tab PO ONE ×2 (15:35)
--- NOTE | 2023-02-03 17:02 | NUR ---
I HAVE REVIEWED D/C INSTRUCTIONS WITH PATIENT and they have verbalized understanding patient d/c home with all belongings and family gave transport home. Addendum: 02/03/23 at 1725 by Monica Randall RN, RN Amended: Links added.
== END 2023-02-03 17:02 | disposition home or self-care (01) ==
LOC: PAS 10:27
PROVIDERS: ATTEND Surgery
DX: I12.9 Hypertensive chronic kidney disease with stage 1 through stage 4 chronic kidney disease, or unspecified chronic kidney disease (principal); N18.4 Chronic kidney disease, stage 4 (severe); K42.9 Umbilical hernia without obstruction or gangrene; Z79.899 Other long term (current) drug therapy; M19.90 Unspecified osteoarthritis, unspecified site; Z98.890 Other specified postprocedural states; M10.9 Gout, unspecified; K21.9 Gastro-esophageal reflux disease without esophagitis; Z72.89 Other problems related to lifestyle
CPT/HCPCS: 36415; 49324; 71046; 80053; 81001; 82948; 85025; 93005; C1750; J0131; J0690; J1100; J1642; J2175; J2250; J2270; J2405; J2704; J3010; J3490; J7030; J7040; J7120; Z7506; Z7508; Z7512; A4215; A4618; A6449; A7000; J2710

== ENCOUNTER 2023-12-10 20:29 | Emergency (ER) | payer MEDICARE, MEDICAID ==
[~2023-12-10] VITALS: Ht 190.5 cm; Wt 120.5 kg
[~2023-12-10 20:29] MED LIST changes: -DOCUMENT DATE & TIME OF BETA-BLOCKER PO ONE; -cefazolin 2gm/D5W 100mL 100 ML IV ONE; -famotidine 20mg tablet PO ONE; -normal saline 1000ml 500 ML IV SCH
[2023-12-10 20:48] VITALS: BP 165/109; PULSE 80; RESP 17; TEMP 98.5; O2SAT 98
[2023-12-10 22:03] LABS: BASOPHILS % (AUTO) 0.7 % (0-1); EOSINOPHILS # (AUTO) 0.2 X10'3 (0-0.9); EOSINOPHILS % (AUTO) 3.4 % (0-6); HEMATOCRIT 33.6 % (42.0-52.0); HEMOGLOBIN 11.4 g/dl (14.0-17.9); LYMPHOCYTES # (AUTO) 1.6 X10'3 (1.1-4.8); MEAN PLATELET VOLUME 6.6 FL (7.4-10.4); MONOCYTES # (AUTO) 0.8 X10'3 (0-0.9); MONOCYTES % (AUTO) 13.9 % (2-12); PLATELET COUNT 228 X10'3 (140-440); RED BLOOD COUNT 3.17 X10'6 (4.70-6.10); RED CELL DISTRIBUTION WIDTH 14.3 % (11.5-14.5); WHITE BLOOD COUNT 5.6 X10'3 (4.5-11.0)
[2023-12-10 22:16] LABS: APTT 26 SECONDS (22-32); PROTHROMBIN TIME 9.8 SECONDS (9.0-12.0)
[2023-12-10 22:19] LABS: INR 0.9 INR
[2023-12-10 22:28] LABS: ALBUMIN 3.6 G/DL (3.4-5.0); ANION GAP 10 (8-16); BLOOD UREA NITROGEN 32 MG/DL (7-18); BUN/CREATININE RATIO 5.8 (10.0-20.0); CALCIUM 8.9 MG/DL (8.5-10.1); CHLORIDE 92 MMOL/L (99-107); CREATININE 5.49 MG/DL (0.60-1.10); GLUCOSE 90 MG/DL (70-104); MAGNESIUM 1.7 MG/DL (1.5-2.4); POTASSIUM 3.5 MMOL/L (3.5-5.1); PRO BRAIN NATRIURETIC PEPTIDE 883 PG/ML (0-125); SODIUM 130 MMOL/L (135-145); TOTAL CARBON DIOXIDE 27.8 MMOL/L (24-32); eCRCL 20 ML/MIN; eGFR 11 ML/MIN
== END 2023-12-10 23:12 | disposition home or self-care (01) ==
LOC: ER 20:30
DX: R51.9 Headache, unspecified (principal); T46.3X5A Adverse effect of coronary vasodilators, initial encounter; Y92.89 Other specified places as the place of occurrence of the external cause
CPT/HCPCS: 36415; 80048; 83735; 83880; 84484; 85025; 85610; 85730; 93005; 99284

== ENCOUNTER 2024-06-16 09:27 | Outpatient (CLI) | payer MEDICARE, MEDICAID | END 2024-06-16 23:59 | disposition home or self-care (01) | LOC: CARD DIAG 09:27 | PROVIDERS: ATTEND Family Medicine | DX: I08.8 Other rheumatic multiple valve diseases (principal); N18.6 End stage renal disease | CPT/HCPCS: 93306 ==

== ENCOUNTER 2025-03-16 11:27 | Inpatient (IN) | payer MEDICARE, MEDICAID ==
[~2025-03-16] VITALS: Ht 190.5 cm; Wt 109.9 kg
[2025-03-16 12:15] LABS: BASOPHILS % (AUTO) 0.2 % (0-1); EOSINOPHILS % (AUTO) 0 % (0-6); HEMATOCRIT 34.5 % (42.0-52.0); LYMPHOCYTES # (AUTO) 0.3 X10'3 (1.1-4.8); LYMPHOCYTES % (AUTO) 2.6 % (21-51); MEAN CORPUSCULAR HEMOGLOBIN 36.7 PG (27.0-31.0); MEAN CORPUSCULAR HGB CONC 34.7 g/dL (33.0-36.5); MEAN CORPUSCULAR VOLUME 105.8 FL (78-98); MEAN PLATELET VOLUME 7.4 FL (7.4-10.4); MONOCYTES # (AUTO) 0.4 X10'3 (0-0.9); MONOCYTES % (AUTO) 3.5 % (2-12); NEUTROPHILS # (AUTO) 9.5 X10'3 (1.8-7.7); NEUTROPHILS % (AUTO) 93.7 % (42-75); PLATELET COUNT 165 X10'3 (140-440); RED BLOOD COUNT 3.27 X10'6 (4.70-6.10); WHITE BLOOD COUNT 10.2 X10'3 (4.5-11.0)
[2025-03-16 12:29] LABS: ALANINE AMINOTRANSFERASE 24 U/L (12-78); ALBUMIN 2.5 G/DL (3.4-5.0); ALBUMIN/GLOBULIN RATIO 0.8 (1.1-1.5); ALKALINE PHOSPHATASE 49 IU/L (46-116); ANION GAP 8 (8-16); ASPARTATE AMINO TRANSFERASE 39 U/L (10-37); BILIRUBIN,TOTAL 0.7 MG/DL (0.1-1.0); BLOOD UREA NITROGEN 32 MG/DL (7-18); BUN/CREATININE RATIO 5.2 (10.0-20.0); CALCIUM 7.9 MG/DL (8.5-10.1); CHLORIDE 97 MMOL/L (99-107); CREATININE 6.11 MG/DL (0.60-1.10); GLUCOSE 117 MG/DL (70-104); SODIUM 133 MMOL/L (135-145); TOTAL CARBON DIOXIDE 27.9 MMOL/L (24-32); TOTAL PROTEIN 5.5 G/DL (6.4-8.2); eCRCL 17 ML/MIN; eGFR 10 ML/MIN
[2025-03-16 12:34] LABS: LIPASE > 375 U/L (16-77)
--- NOTE | 2025-03-16 14:18 | Physician Documentation ---
History of Present Illness Chief Complaint: Abdominal Pain w/vomiting Stated Complaint: ABD PAIN DIZZINESS WEAKNESS Time Seen by MD: 13:37 Primary Medical Doctor: ROMAN Source: patient Exam Limitations: no limitations HPI Chief Complaint: Abdominal pain Caveat: None Independent Historians: None History of Present Illness: Patient is a 49-year-old man with history of polycystic kidney disease, chronic renal failure on peritoneal dialysis and pancreatitis. Patient complains of diffuse abdominal pain, nausea, vomiting and diarrhea that began yesterday. Symptoms have gotten progressively worse. Patient believes it is similar to previous pancreatitis and is related to heavier than usual drinking. Patient's last alcohol consumption was last night. Patient denies any fever. No chest pain, no shortness a breath. Review of systems: All systems were reviewed and are negative except for what is indicated in the history of present illness. Past Medical History: Polycystic kidney disease, chronic renal failure, HTN, pancreatitis Past Surgical History: Hernia repair Social History: Daily alcohol use, marijuana use, denies tobacco use, denies other drug use Medications: Reviewed as documented Nursing Notes Allergies: Reviewed as documented in Nursing Notes Medication Reconciliation Allergies: Coded Allergies: No Known Allergies (Unverified , 12/10/23) Scheduled Allopurinol (Zyloprim), 2 TAB PO DAILY, (Reported) Lisinopril* (Lisinopril*), 1 TAB PO QAM, (Reported) Metoprolol Succinate (Metoprolol Succinate), 1 TAB PO DAILY, (Reported) Omeprazole (Prilosec), 1 CAP PO DAILY, (Reported) Trazodone HCl (Trazodone HCl), 1 TAB PO HS, (Reported) Past Medical History Past Medical History: No Pertinent History Past Surgical History: noncontributory Alcohol Use: Occasionally Drug Use: none Lives with: S/O Lives In: Home Review of Systems All Other Systems at this time: Reviewed and Negative ROS Patient denies any other acute symptoms other than above. All other systems are negative Physical Exam Vital Signs: RN Vital Signs have been reviewed: Yes, Temperature: 98.2, Source: Oral, Heart Rate: 77, Respiratory Rate: 15, BP: 105/85, Pulse Oximetry: 99, Darek ght: 109.900 Oxygen Flow Rate: 0 Pulse Oximetry Reflects: adequate oxygenation Physical Exam General Appearance: MILD DISTRESS HEENT: Normal OP, moist oral mucosa, PERRL, EOMI Neck: supple, normal ROM, trachea midline Pulmonary: No respiratory distress, CTA, BS equal Cardiac: RRR, no murmur, rub or gallop, GI: nondistended, soft, DIFFUSE TENDERNESS, normal bowel sounds, no guarding, no rebound, PERITONEAL DIALYSIS CATHETER PRESENT Extremities: normal ROM, no swelling, non-tender Skin: intact, dry, warm, no rashes Neuro: AAOx3, speech is clear, no focal motor weakness Psych: normal affect, good eye contact, no apparent hallucination, normal speech Progress Results/Orders Results/Orders Orders - HOWARD MAYER MD Urinalysis, Cult If Indicated (03/16/25 11:40) Morphine 4mg/Ml Inj. (Morphine Inj.) (03/16/25 13:50) Completed Orders - HOWARD MAYER MD Cbc/Diff (03/16/25 11:40) BMP (03/16/25 11:40) Lipase (03/16/25 11:40) CMP (03/16/25 11:40) Ondansetron Inj. (Zofran 4mg/2ml Vial) (03/16/25 13:50) Vital Signs 03/16/25 03/16/25 11:36 12:54 Temp 98.4 98.2 Pulse 89 77 Resp 16 15 B/P (MAP) 113/87 105/85 (92) Pulse Ox 99 99 O2 Flow Rate 0 Laboratory Tests Test 03/16/25 11:51 White Blood Count 10.2 Red Blood Count 3.27 L Hemoglobin 12.0 L Hematocrit 34.5 L Mean Corpuscular Volume 105.8 H Mean Corpuscular Hemoglobin 36.7 H Mean Corpuscular Hemoglobin Concent 34.7 Red Cell Distribution Width 14.0 Platelet Count 165 Mean Platelet Volume 7.4 Neutrophils (%) (Auto) 93.7 H Lymphocytes (%) (Auto) 2.6 L Monocytes (%) (Auto) 3.5 Eosinophils (%) (Auto) 0 Basophils (%) (Auto) 0.2 Neutrophils # (Auto) 9.5 H Lymphocytes # (Auto) 0.3 L Monocytes # (Auto) 0.4 Eosinophils # (Auto) 0.0 Basophils # (Auto) 0.0 CBC Comment Sodium Level 133 L Potassium Level 5.0 Chloride Level 97 L Carbon Dioxide Level 27.9 Anion Gap 8 Blood Urea Nitrogen 32 H Creatinine 6.11 H Estimated GFR/1.73 m2 10 BUN/Creatinine Ratio 5.2 L Glucose Level 117 H Calcium Level 7.9 L Total Bilirubin 0.7 Aspartate Amino Transf (AST/SGOT) 39 H Alanine Aminotransferase (ALT/SGPT) 24 Alkaline Phosphatase 49 Total Protein 5.5 L Albumin 2.5 L Globulin 3.0 Albumin/Globulin Ratio 0.8 L Lipase > 375 H Chemistry Comments Medical Decision Making Findings Differential diagnosis includes but is not limited to: ALCOHOLIC PANCREATITIS, GALLSTONE PANCREATITIS, PSEUDOCYST, DEHYDRATION, ELECTROLYTE ABNORMALITIES Laboratory data independent interpretation: CBC: CMP: Toxicology: Serology: Urinalysis: Emergency department course/medical decision-making: Consultation/communications: Departure Referrals: NO PRIMARY CARE PROVIDER (PCP) HOWARD MAYER MD March 16, 2025 14:18
[2025-03-16] MEDS: ondansetron/PF 4mg/2ml inj IV ONE (14:30)
[2025-03-16] MEDS: morphine 4 MG/ML inj SYRINge IV PRN (14:31)
--- NOTE | 2025-03-16 15:24 | RADIOLOGY REPORT ---
Exam: CT CT ABDOMEN PELVIS History: Abdominal Pain Comparison Study: None TECHNIQUE: Multidetector CT of the abdomen was performed from lung bases to pubic symphysis. Imaging was performed without IV contrast. Axial, coronal and sagittal multiplanar reformats were obtained fr om the axial data set by the technologist. Radiation Dose Information: CT Dose: CTDI volume is 33.57 mGy. Dose-length product is 1735.32 mGy*cm FINDINGS: Evaluation of solid organs is limited due to lack of intravenous contrast use. Findings: Lung Bases: No acute or significant lung base finding. Normal heart size. No pleural or pericardial effusion. Liver: The liver is normal in size. No focal lesions. Hepatic steatosis. Gallbladder and Biliary Tree: Unremarkable Spleen: Unremarkable Pancreas: Inflammatory stranding in the mesenteric fat surrounding the pancreas suggesting pancreatit is. 2.5 cm cystic lesion adjacent to the head of the pancreas may represent small pseudocyst or cyst ic neoplasm. Consider MRCP. Can not determine necrotic change to the pancreas without IV contrast. Adrenal Glands: Unremarkable Kidneys: Adult multi-cystic renal disease. Right kidney measures 19 cm in length. Left kidney measur es 19 cm in length. Peritoneal dialysis catheter in the pelvis. Bladder: Grossly unremarkable for degree of distention. Bowel: The stomach is grossly normal in appearance. Small bowel and colon are normal in caliber and d istribution. The appendix is not visualized; however, no secondary findings of acute appendicitis id entified. Ascites: Ascites in an umbilical hernia Lymphadenopathy: No mesenteric, retroperitoneal or periportal lymphadenopathy. Abdominal Wall and Mesentery: Unremarkable. Vasculature: The visualized abdominal aorta is normal in size and caliber. Evaluation of abdominal a nd pelvic vessels is limited due to lack of intravenous contrast. Pelvic Organs: Unremarkable Musculoskeletal: No aggressive focal bony lesions, acute fractures or dislocation. Soft tissues: Unremarkable IMPRESSION: 1. Findings suggesting pancreatitis, 2.5 cm cystic area adjacent to the head of the pancreas can not exclude pseudocyst or cystic neoplasm. Correlate with pancreatic enzymes. 2. Adult multi-cystic renal disease. 3. Right kidney measures 19 cm length. Left kidney measures 18.9 cm. 4. Ascites in the umbilical hernia, measuring 4 cm. 5. Peritoneal dialysis catheter in place. Radiation optimization: All CT scans at this facility use at least one of these dose optimization te chniques: automated exposure control mA and/or kV adjustment per patient size (includes targeted exa ms where dose is matched to clinical indication) or iterative reconstruction. HS:Y
--- NOTE | 2025-03-16 16:26 | HISTORY AND PHYSICAL ---
History & Physical Providers to Chief complaint, abdominal pain ~ History of Present Illness Reason for Admit\Complaint: As above History of Present Illness This is a 49-year-old man with history of polycystic kidney disease, chronic renal failure on peritoneal dialysis for the last two years and pancreatitis, history of anemia hemoglobin 12, COPD, ex-smoker, marijuana user, chronic CHF diastolic ejection fraction 70% 2023, pancreatic head cystic lesion, rule out cancer, end-stage renal disease, hepatic steatosis, presented today to emergency department chief complaint abdominal pain, in addition this is the Patient complains of diffuse abdominal pain, nausea, vomiting and nonbloody diarrhea that began yesterday. Symptoms have gotten progressively worse. Patient believes it is similar to previous pancreatitis and is related to heavier than usual drinking. Patient's last alcohol consumption was last night. Patient denies any fever. No chest pain, no shortness a breath. In emergency department he was evaluated by physician was diagnosed with acute pancreatitis and decision was made to admit patient for further evaluation and treatment, no additional complaint or concern. Allergies: Coded Allergies: No Known Allergies (Unverified , 12/10/23) Active prescriptions I reviewed reconciled Home Medications Home Medications Active Reported Metoprolol Succinate 25 Mg Tab.sr.24h 1 Tab PO DAILY Lisinopril* (Lisinopril) 40 Mg Tablet 1 Tab PO QAM 30 Days Zyloprim (Allopurinol) 100 Mg Tablet 2 Tab PO DAILY 30 Days Trazodone HCl 100 Mg Tablet 1 Tab PO HS 30 Days Prilosec (Omeprazole) 40 Mg Capsule 1 Cap PO DAILY Past Medical History Past Medical History As in HPI Past Surgical History Surgical History Comment As in HPI Past Social History Social History Comment Positive for chronic alcoholism including ongoing, deny illicit drug use except marijuana, ex-smoker, lives with the family good social support Health Maintenance Health Maintenance Noncontributory ROS ROS Constitutional : no fever , no chills, or weakness. No diaphoresis. Allergic/Immunologic, no lymphadenopathy, no hives, no skin eruptions. Eyes, no recent visual changes, no eye pain, no photophobia. Ears, nose, mouth, throat, no sore throat, no nosebleed, no ear pain. Cardiovascular, no palpitations, skipped beats, chest pain, no peripheral edema, Respiratory, no dyspnea, orthopnea, cough, hemoptysis, chest wall pain. Gastrointestinal, positive for abdominal pain, nausea, vomiting, nonbloody diarrhea. : no dysuria, hematuria, pelvic pain, urethral d/c. Endocrine, no polyuria, polydipsia, recent unintentional weight gain or loss. Hematologic/Lymphatic, no petechiae, no enlarged lymph nodes, no bone pain. Integumentary, no rash, no skin lesions, Musculoskeletal, no muscle aches, or pain, no muscle cramps, no recent change in gait Neurological, no dizziness, no headache, no syncope, no paresthesia. Psychiatric, no delusions, visual hallucinations, or hearing hallucinations. ROS - in rest is as in HPI. Exam Vitals: Vital Signs Date Time Temp Pulse Resp B/P (MAP) Pulse Ox O2 Delivery O2 Flow Rate FiO2 03/16/25 14:36 73 16 125/85 (98) 03/16/25 12:54 98.2 99 03/16/25 11:36 0 Vital signs, stable ,afebrile. Pulse Oximetry reflects adequate oxygenation. BMI is 30, weight 109 kilos General: well developed, well nourished. Awake , alert, and oriented x4, resting comfortably in the bed, in no acute distress . Skin: Warm, dry, no pallor, no rash or petechiae. HEENT: Atraumatic, normocephalic, EOMI, anicteric sclera B; pink conjunctiva; PERRLA, normal oropharynx, moist oral and nasal mucosa. Tympanic membrane , nose , throat clear. Neck: Trachea midline. Supple, full range of motion, no JVD, bruit , hepatojugular reflex , lymphadenopathy or masses, or other lesions Cardiac: Regular rhythm, regular rate no murmurs, rubs, or gallops. Normal S1 and S2, no S3 noticed. PMI is normal. Respiratory: Equal breath sounds bilaterally, no tachypnea; lungs clear to auscultation bilaterally, no wheezing ,rub or rales, or crackles. Chest wall is symmetric and without deformity. No signs of trauma. Chest wall is nontender. No signs of respiratory distress. Resonance is normal upon percussion bilaterally. Gastrointestinal: Abdomen symmetric, non-distended, soft, mild tenderness to palpation epigastric area, normal bowel sounds x4 quadrant, normoactive, no hepatosplenomegaly , no masses , no bruit, no flank pain bilaterally. No voluntary guarding, rebound, or rigidity. No tenderness to percussion. No pulsatile masses. Equal femoral pulses. No Flores's sign or McBurney point tenderness. Back; no CVA tenderness bilaterally, no deformities. Neck and back are without deformity as well. No tenderness noted on palpation of the spinous processes. Spinous processes are midline. Cervical, thoracic, and lumbar paraspinal muscles are not tender and are without spasm. : normal external genitalia, without lesions, swelling, masses or tenderness. Musculoskeletal: Extremities, normal range of motion, non-tender, muscle strength 5/5 x 4. Negative Homans signs bilaterally on lower extremity. Distal pulses full symmetrical, no clubbing, cyanosis , edema. Neurological: Speech is clear, alert, and oriented x 4. No motor or sensory deficit, deep tendon reflexes normal, cerebellar intact. Cranial nerves II-XII intact. Psych: Alert and or appropriate, normal affect. Vascular: Good distal pulses, which are equal x4; capillary refill less than 2 seconds. Lymphatic, no lymphadenopathy. Diagnostic Data Last Recorded Lab Results: 03/16/25 1151 03/16/25 1151 Advance Care Planning Advanced Care plannin - 30 Minutes Additional Plan Assessment Chronic alcohol abuse including ongoing chronic pancreatitis secondary to above in exacerbation Acute pancreatitis Cystic lesion pancreatic head, rule out cancer Acute diarrhea nonbloody End-stage renal disease secondary to polycystic kidney disease On peritoneal hemodialysis Hypertension fair control Anemia hemoglobin 12 Additional comorbidities, COPD, ex-smoker, history of marijuana use, chronic CHF diastolic ejection fraction 70% 2023, hepatic steatosis Non IV fluids, keep patient well hydrated euvolemic NPO Alcohol withdrawal protocol Additional lab work pending Substance use navigator consult I reconciled home medications IV Protonix DVT gastropathy prophylaxis addressed Date of Service: March 16, 2025 Billing Provider: BARON MCCALL MD Common Visit Codes: 28344-PKK/[id number] SAME DATE (HIGH) Secondary Visit Codes: [id number] CARE PLAN 30 MINUTES BARON MCCALL MD March 16, 2025 16:26
[2025-03-16] MEDS ORDERED: HYDROmorphone inj. 0.5 MG/0.5 ML DISP.SYRIN IV PRN (16:40)
[2025-03-16] MEDS ORDERED: haloperidol lactate 5mg/ml inj IM PRN (16:40)
[2025-03-16] MEDS ORDERED: HYDROcodone/acetaminophen 10/325mg tab PO PRN (16:40)
[2025-03-16] MEDS ORDERED: haloperidol 5mg tablet PO PRN (16:40)
[2025-03-16] MEDS ORDERED: LORazepam 2 mg/ml vial IV PRN (16:40)
[2025-03-16] MEDS ORDERED: dextrose 50%-water 50ml dispensing syringe IV PRN (16:40)
[2025-03-16] MEDS ORDERED: diphenhydrAMINE 50 mg/ml inj IV PRN (16:40)
[2025-03-16] MEDS ORDERED: mag hydrox/Alum hydrox/simeth 30ml oral suspension PO PRN (16:40)
[2025-03-16] MEDS ORDERED: potassium Cl 40MEQ/1/2NS 520ml 520 ML IV PRN (16:40)
[2025-03-16] MEDS ORDERED: diphenhydrAMINE 25mg capsule PO PRN (16:40)
[2025-03-16] MEDS ORDERED: metoclopramide 5 mg/ml inj IV PRN (16:40)
[2025-03-16] MEDS ORDERED: potassium Cl 20 mEq SR tablet PO PRN ×2 (16:40)
[2025-03-16] MEDS ORDERED: magnesium hydroxide 30ml (MOM) UD suspension PO PRN (16:40)
[2025-03-16] MEDS ORDERED: acetaminophen 325mg tablet PO PRN (16:40)
[2025-03-16] MEDS ORDERED: bisacodyl 10mg suppository rectal RC PRN (16:40)
[2025-03-16 17:09] LABS: HEMOGLOBIN A1C 4.8 % (4.5-6.2)
[2025-03-16 17:10] LABS: PHOSPHORUS 3.6 MG/DL (2.3-4.5); PRO BRAIN NATRIURETIC PEPTIDE 3807 PG/ML (0-125)
[2025-03-16 17:14] LABS: MAGNESIUM 0.7 MG/DL (1.5-2.4)
[2025-03-16 17:30] LABS: UA COLLECTION TYPE CLN CATCH MIDSTREAM
[2025-03-16 17:31] LABS: BILIRUBIN,URINE NEGATIVE (Neg); CLARITY,URINE CLEAR (Clear); COLOR,URINE YELLOW (Yellow); GLUCOSE, URINE NEGATIVE (Neg); KETONES,URINE NEGATIVE (Neg); LEUKOCYTE ESTERASE ,URINE NEGATIVE (Neg); NITRITES, URINE NEGATIVE (Neg); OCCULT BLOOD,URINE TRACE-INTACT (Neg); PH,URINE 7.5 (4.8-8.0); PROTEIN,URINE 100 mg/dl (Neg); UROBILINOGEN,URINE 0.2 E.U/dL (0.2-1.0)
[2025-03-16 17:36] LABS: APTT 24 SECONDS (22-32); INR 0.9 INR; PROTHROMBIN TIME 9.7 SECONDS (9.0-12.0)
[2025-03-16 17:37] LABS: URINE AMPHETAMINE SCREEN NEGATIVE (Neg); URINE BARBITUATE SCREEN NEGATIVE (Neg); URINE BENZODIAZEPINES SCREEN NEGATIVE (Neg); URINE CANNABINOID SCREEN POSITIVE (Neg); URINE COCAINE SCREEN NEGATIVE (Neg); URINE METHADONE SCREEN NEGATIVE (Neg); URINE OPIATE SCREEN NEGATIVE (Neg); URINE PHENCYCLIDINE SCREEN NEGATIVE (Neg)
[2025-03-16 17:39] LABS: BACTERIA,URINE FEW /HPF (Neg); SQUAMOUS EPITHELIAL CELL,UR FEW /LPF (FEW); WBC,URINE 0-4 /HPF (0-4)
[2025-03-16 17:40] LABS: MUCUS STRANDS NONE SEEN /LPF (Neg)
[2025-03-16 17:46] LABS: ETHANOL < 10 MG/DL (<10); THYROID STIMULATING HORMONE 3.25 ulU/ml (0.34-4.50)
[2025-03-16] MEDS: magnesium sulf-water 2g/50mL 50 ML IV PRN (18:55)
[2025-03-16] MEDS: dextrose 5%-1/2 normal saline 1,000 ML IV SCH (19:05)
[2025-03-16] MEDS: pantoprazole 40MG/NS 100ML BAG 100 ML IV SCH (20:00)
[2025-03-16] MEDS: K and/or MAG REPLACEMENT MC SCH (20:00)
[2025-03-16] MEDS: docusate sod 100mg capsule PO SCH (20:00)
[2025-03-16] MEDS: magnesium sulf-water 4G/100mL 100 ML IV PRN (20:07)
[2025-03-16] MEDS ORDERED: DILT-36 PO (20:11)
[2025-03-16] MEDS ORDERED: FURO40TA4 PO (20:11)
[2025-03-16] MEDS ORDERED: SODI650T29 PO (20:11)
[2025-03-16 20:40] VITALS: BP 141/88; PULSE 74; RESP 16; TEMP 97.9; O2SAT 95
[2025-03-16 22:00] VITALS: BP 130/92; PULSE 72; RESP 18; TEMP 98.1; O2SAT 97
[2025-03-16] MEDS: temazepam 15mg capsule PO PRN (22:07)
[2025-03-16] MEDS: heparin, porcine 5000 units/ml vial SQ SCH (22:08)
[2025-03-16] MEDS: ondansetron/PF 4mg/2ml inj IV PRN (22:08)
[2025-03-16] MEDS: thiamine 100mg/ml 2ml inj. IV SCH (22:08)
[2025-03-17] VITALS (18 sets, daily range): BP systolic 111–167; BP diastolic 57–109; PULSE 56–88; RESP 16–19; TEMP 97.4–98.7; O2SAT 95–99
[2025-03-17 06:09] LABS: BASOPHILS % (AUTO) 0 % (0-1); EOSINOPHILS % (AUTO) 0 % (0-6); HEMATOCRIT 28.1 % (42.0-52.0); HEMOGLOBIN 9.7 g/dl (14.0-17.9); LYMPHOCYTES # (AUTO) 0.6 X10'3 (1.1-4.8); LYMPHOCYTES % (AUTO) 6.3 % (21-51); MEAN CORPUSCULAR HEMOGLOBIN 36.7 PG (27.0-31.0); MEAN CORPUSCULAR HGB CONC 34.5 g/dL (33.0-36.5); MEAN CORPUSCULAR VOLUME 106.3 FL (78-98); MEAN PLATELET VOLUME 7.7 FL (7.4-10.4); MONOCYTES # (AUTO) 0.6 X10'3 (0-0.9); MONOCYTES % (AUTO) 6.4 % (2-12); NEUTROPHILS # (AUTO) 8.1 X10'3 (1.8-7.7); NEUTROPHILS % (AUTO) 87.3 % (42-75); PLATELET COUNT 118 X10'3 (140-440); RED BLOOD COUNT 2.64 X10'6 (4.70-6.10); RED CELL DISTRIBUTION WIDTH 14.3 % (11.5-14.5); WHITE BLOOD COUNT 9.3 X10'3 (4.5-11.0)
[2025-03-17 06:36] LABS: ALANINE AMINOTRANSFERASE 20 U/L (12-78); ALBUMIN 1.9 G/DL (3.4-5.0); ALBUMIN/GLOBULIN RATIO 0.7 (1.1-1.5); ALKALINE PHOSPHATASE 40 IU/L (46-116); ANION GAP 8 (8-16); ASPARTATE AMINO TRANSFERASE 24 U/L (10-37); BILIRUBIN,TOTAL 0.4 MG/DL (0.1-1.0); BLOOD UREA NITROGEN 35 MG/DL (7-18); CALCIUM 8.1 MG/DL (8.5-10.1); CHLORIDE 97 MMOL/L (99-107); CHOL/HDL RATIO 1.2 (0.00-4.99); CHOLESTEROL 152 MG/DL (0-200); CREATININE 5.85 MG/DL (0.60-1.10); GLUCOSE 137 MG/DL (70-104); HDL CHOLESTEROL 124 MG/DL (35-60); LDL CHOLESTEROL 17 MG/DL (50-100); MAGNESIUM 1.9 MG/DL (1.5-2.4); POTASSIUM 4.1 MMOL/L (3.5-5.1); SODIUM 133 MMOL/L (135-145); TOTAL CARBON DIOXIDE 27.6 MMOL/L (24-32); TOTAL PROTEIN 4.7 G/DL (6.4-8.2); TRIGLYCERIDES 31 MG/DL (20-135); eCRCL 18 ML/MIN; eGFR 10 ML/MIN
[2025-03-17] MEDS: pantoprazole 40 MG vial IV SCH (08:17)
[2025-03-17] MEDS: folic acid 1mg/0.2ml inj IV SCH (08:17)
[2025-03-17 11:01] LABS: LIPASE 231 U/L (16-77)
[2025-03-17] MEDS: morphine 2 MG/ML inj. syringe IV PRN (13:23)
[2025-03-17] MEDS: LIDOcaine 1% (10mg/ml) 2ml vial SQ ONE ×2 (14:35→15:25)
[2025-03-17] MEDS: LIDOcaine 1% (10mg/ml) 2ml vial ONE ×3 (15:30→15:32)
--- NOTE | 2025-03-17 16:58 | RADIOLOGY REPORT ---
CHEST RADIOGRAPH Indication: dialysis cath placed right IJ Technique: Single frontal view of the chest was obtained Comparison: None FINDINGS: Lines and Tubes: None Lungs: No focal consolidation. Pleura: No effusion. No pneumothorax. Cardiomediastinal contours: Unremarkable Bones: No acute osseous abnormality. IMPRESSION: 1. Compared to 01/27/2023 there is improved inspiratory effort. HS:Y
--- NOTE | 2025-03-17 17:17 | PROGRESS NOTE ---
Daily Progress Note Providers to CC ~ feels better today, less pain, resting comfortably in the bed Central Line/PICC still needed: No Smart-Non Protocol Smart Indications Met/Not Met: F/C Indications Not Met Antibiotic Timeout Antibiotic Ordered?: No MRSA Education MRSA Education Provided to pt: No Subjective As above Objective Vital Signs Date Time Temp Pulse Resp B/P (MAP) Pulse Ox O2 Delivery O2 Flow Rate FiO2 03/17/25 08:00 18 99 Bi-pap/CPAP 03/17/25 06:30 71 03/17/25 06:00 97.7 157/93 (114) 03/16/25 20:40 0.0 Vital signs, stable ,afebrile. Pulse Oximetry reflects adequate oxygenation on BiPAP CPAP General: well developed, well nourished. Awake , alert, and oriented x4, resting comfortably in the bed, in no acute distress . Skin: Warm, dry, no pallor, no rash or petechiae. HEENT: Atraumatic, normocephalic, EOMI, anicteric sclera B; pink conjunctiva; PERRLA, normal oropharynx, moist oral and nasal mucosa. Tympanic membrane , nose , throat clear. Neck: Trachea midline. Supple, full range of motion, no JVD, bruit , hepatojugular reflex , lymphadenopathy or masses, or other lesions Cardiac: Regular rhythm, regular rate no murmurs, rubs, or gallops. Normal S1 and S2, no S3 noticed. PMI is normal. Respiratory: Equal breath sounds bilaterally, no tachypnea; lungs clear to auscultation bilaterally, no wheezing ,rub or rales, or crackles. Chest wall is symmetric and without deformity. No signs of trauma. Chest wall is nontender. No signs of respiratory distress. Resonance is normal upon percussion bilaterally. Gastrointestinal: Abdomen symmetric, non-distended, soft, non-tender, normal bowel sounds x4 quadrant, normoactive, no hepatosplenomegaly , no masses , no bruit, no flank pain bilaterally. No voluntary guarding, rebound, or rigidity. No tenderness to percussion. No pulsatile masses. Equal femoral pulses. No Flores's sign or McBurney point tenderness. Back; no CVA tenderness bilaterally, no deformities. Neck and back are without deformity as well. No tenderness noted on palpation of the spinous processes. Spinous processes are midline. Cervical, thoracic, and lumbar paraspinal muscles are not tender and are without spasm. : normal external genitalia, without lesions, swelling, masses or tenderness. Musculoskeletal: Extremities, normal range of motion, non-tender, muscle strength 5/5 x 4. Negative Homans signs bilaterally on lower extremity. Distal pulses full symmetrical, no clubbing, cyanosis , edema. Neurological: Speech is clear, alert, and oriented x 4. No motor or sensory deficit, deep tendon reflexes normal, cerebellar intact. Cranial nerves II-XII intact. Psych: Alert and or appropriate, normal affect. Vascular: Good distal pulses, which are equal x4; capillary refill less than 2 seconds. Lymphatic, no lymphadenopathy. Result Diagram: 03/17/2544303/17/25443 Coagulation Studies Laboratory Tests Test 03/16/25 16:54 Prothrombin Time 9.7 SECONDS (9.0-12.0) INR International Normalized Ratio 0.9 INR Activated Partial Thromboplast Time 24 SECONDS (22-32) Coagulation Comments Problem\Assessment\Plan Assessment Chronic alcohol abuse including ongoing chronic pancreatitis secondary to above in exacerbation Acute pancreatitis Cystic lesion pancreatic head, rule out cancer Acute diarrhea nonbloody End-stage renal disease secondary to polycystic kidney disease On peritoneal hemodialysis Hypertension fair control Anemia Additional comorbidities, COPD, ex-smoker, history of marijuana use, chronic CHF diastolic ejection fraction 70% 2023, hepatic steatosis Non IV fluids, keep patient well hydrated euvolemic NPO Alcohol withdrawal protocol Additional lab work pending Substance use navigator consult I reconciled home medications Nephrology doctor on case appreciate assistance and expertise IV Protonix DVT gastropathy prophylaxis addressed Sepsis Screening Reassessment Date: March 17, 2025 Date of Service: March 17, 2025 Billing Provider: BARON MCCALL MD Common Visit Codes: [id number] INP/OBS CARE(HIGH) BARON MCCALL MD March 17, 2025 17:17
--- NOTE | 2025-03-17 17:17 | CONSULTATION REPORT ---
Consult Providers to CC ~ History of Present Illness Primary Medical Doctor: Beck Azar MD Reason for Admit\Complaint: diarrhea being ruled out for CDiff, etoh abuse, pancreatitis History of Present Illness 49 year old man ,that confessed to me today that he has been drinking a lot off late, that also takes primary care of his 2 grand daughters along with his , has been feeling worthless off late as he beceame dialysis bound, and has been living on disability. He came very close to trnasplant but it didn't antonio out. He k=now is admitted with pancreatitis with this habit that started back recently again. he is agreeing to quit and melted down today. his daughter and her boy friend are on fentanyl and tehy go in and out of rehab which also puts him and his spouse in a lot of stress. He definitely needs psychiatric counseling, if available. he says he is not suicidal. lipase was >375 and now it is down to 231. NO PD facility available here. He just got the maylin cath and is getting HD at this time. Allergies: Coded Allergies: No Known Allergies (Unverified , 12/10/23) Home Medications Home Medications Active Reported Antacid (Sodium Bicarbonate) 650 Mg Tablet 1 Tab PO DAILY Furosemide 40 Mg Tablet 1 Tab PO DAILY Diltiazem 24Hr Cd (Diltiazem HCl) 180 Mg Cap.er.24h 1 Tab PO BID Lisinopril* (Lisinopril) 40 Mg Tablet 1 Tab PO QAM 30 Days Zyloprim (Allopurinol) 100 Mg Tablet 2 Tab PO DAILY 30 Days Trazodone HCl 100 Mg Tablet 1 Tab PO HS 30 Days Prilosec (Omeprazole) 40 Mg Capsule 1 Cap PO DAILY Past Medical History Past Medical History ESRD on PD alcoholism anemia of CKD Secondary hyperparthyroidism Past Surgical History Surgical History Comment PD cath placement Past Social History Social History Comment recent reactivation of alcoholism, with depression ROS ROS feels very depressed. denies any suicidal feeling right now. promises to stop this. denies any shortness of breath, or chest pain or worsening edema currently. Exam Vitals: Vital Signs Date Time Temp Pulse Resp B/P (MAP) Pulse Ox O2 Delivery O2 Flow Rate FiO2 03/17/25 08:00 18 99 Bi-pap/CPAP 03/17/25 06:30 71 03/17/25 06:00 97.7 157/93 (114) 5/9/25 20:40 0.0 General: depressedtearful CVS: RRR RS:CTA abd; BS+ Ext: no edema Diagnostic Data Last Recorded Lab Results: 03/17/2544303/17/25443 Diagnostic Data: Laboratory Tests Test 03/16/25 16:54 Prothrombin Time 9.7 SECONDS (9.0-12.0) INR International Normalized Ratio 0.9 INR Activated Partial Thromboplast Time 24 SECONDS (22-32) Coagulation Comments Problems: (1) Acute pancreatitis Assessment & Plan: NPO at this time. Hopefully he can start PO diet from tomorrow if the lipase continues to come down. (2) ESRD (end stage renal disease) on dialysis Assessment & Plan: orders for hD placed and seen hi m during HD. he only has temp dialysis cath at this time. he will go back to PD. I verified with the dialysis home RN. (3) Alcoholism Assessment & Plan: needs psychiatry consultation as he has been feeling depressed and worthless, ever since he went on disability and dialysis. ON humanitarian grounds, kindly consider getting psychiatrist to alcohol and drug counselor him PLEASE. SANDRA MAE MD March 17, 2025 17:17
[2025-03-17] MEDS: heparin 1,000unit/ml 10ml vial 10 ML IV ONE (17:44)
[2025-03-17] MEDS: heparin 1,000 units/ml 10ml inj IV ONE (17:45)
[2025-03-17] MEDS: heparin 1,000 units/ml 10ml inj HE ONE ×2 (17:45→17:46)
--- NOTE | 2025-03-17 18:45 | CONSULTATION REPORT - RESIDENT ---
Consult Providers to CC Resident Creating Document: IVAN NIX, RES CC: AL CAN MD History of Present Illness Reason for Admit\Complaint: Dialysis catheter placement History of Present Illness This is a 49-year-old man with history of polycystic kidney disease, chronic renal failure on peritoneal dialysis for the last two years and pancreatitis, history of anemia hemoglobin 12, COPD, ex-smoker, marijuana user, chronic CHF diastolic ejection fraction 70% 2023, pancreatic head cystic lesion, rule out cancer, end-stage renal disease, hepatic steatosis, presented today to emergency department chief complaint abdominal pain. ICU team is consulted for dialysis catheter placement. Allergies: Coded Allergies: No Known Allergies (Unverified , 12/10/23) Home Medications Home Medications Active Reported Antacid (Sodium Bicarbonate) 650 Mg Tablet 1 Tab PO DAILY Furosemide 40 Mg Tablet 1 Tab PO DAILY Diltiazem 24Hr Cd (Diltiazem HCl) 180 Mg Cap.er.24h 1 Tab PO BID Lisinopril* (Lisinopril) 40 Mg Tablet 1 Tab PO QAM 30 Days Zyloprim (Allopurinol) 100 Mg Tablet 2 Tab PO DAILY 30 Days Trazodone HCl 100 Mg Tablet 1 Tab PO HS 30 Days Prilosec (Omeprazole) 40 Mg Capsule 1 Cap PO DAILY Past Medical History Past Medical History Polycystic kidney disease CKD stage 3 on peritoneal dialysis for the last two years Acute pancreatitis COPD CHF with preserved ejection fraction Past Surgical History Surgical History Comment None Past Social History Social History Comment Patient denies tobacco smoking Consumes alcohol could not tell the amount in specific Does not use marijuana or illicit drug use Exam Vitals: Vital Signs Date Time Temp Pulse Resp B/P (MAP) Pulse Ox O2 Delivery O2 Flow Rate FiO2 03/17/25 18:10 84 18 160/98 (118) 98 Room Air 03/17/25 17:40 98.7 03/16/25 20:40 0.0 General: General: Moderately obese male, Alert, awake, oriented, not in acute distress HEENT: PERRLA, no icterus, pallor, lymphadenopathy, carotid bruit Respiratory system: Bilateral vesicular breath sounds heard, bilateral Creps were heard in all lung regions CVS: S1-S2 heard, no murmurs/rubs/gallop GI: Soft, nontender, no organomegaly, no guarding/rigidity, bowel sounds present Neuro: No focal neurological deficits present Extremities: No edema cyanosis clubbing/deformities Skin: Warm and dry Diagnostic Data Last Recorded Lab Results: 03/17/25 0444 03/17/25 0444 Diagnostic Data: Laboratory Tests Test 03/16/25 16:54 Prothrombin Time 9.7 SECONDS (9.0-12.0) INR International Normalized Ratio 0.9 INR Activated Partial Thromboplast Time 24 SECONDS (22-32) Coagulation Comments Additional Plan ICU team was called in for dialysis catheter placement. This has been placed. Ivan Nix MD Internal Medicine, PGY 1 Sepsis Screening Skin Color: Normal Date of Service: March 17, 2025 Billing Provider: AL CAN MD, SIVA, RES March 17, 2025 18:45
--- NOTE | 2025-03-17 18:47 | PROCEDURE NOTE- Residance ---
Procedure Note Providers to CC CC: AL CAN MD ~ Description A time out was performed. My hands were washed immediately prior to the procedure. I wore a surgical cap, mask with protective eyewear, full gown and sterile gloves throughout the procedure. The patient was placed in Trendelenburg position. RIGHT chest region was prepped using chlorhexidine scrub and draped in sterile fashion using a full drape and sterile probe cover and sterile gel employed. The medial and lateral heads of the sternocleidomastoid muscle were identified as was the carotid pulse. The Internal Jugular vein was identified using the ultrasound. Anesthesia was achieved over the vein using 1% lidocaine. Using real-time out of plane guidance, the introducer needle was inserted into the Internal Jugular vein under direct ultrasound visualization. Venous blood was withdrawn. The syringe was removed and a guidewire was advanced into the introducer needle. The guidewire was visualized in the Internal Jugular Vein by ultrasound. A small incision was made at the skin surface with a scalpel and the introducer needle was exchanged for a dilator over the guidewire. After appropriate dilation was obtained, the dilator was exchanged over the wire for a central venous catheter. The wire was removed and the catheter was sutured in place. A sterile sorbaview shield was placed over the catheter at the insertion site. The patient tolerated the procedure without any hemodynamic compromise. At time of procedure completion, all ports aspirated and flushed properly. Post-procedure chest x-ray is reviewed and confirmed appropriate location at this time. Estimated blood loss is present 5 ml Date of Service: March 17, 2025 Billing Provider: AL CAN MD, SIVA, RES March 17, 2025 18:47
[2025-03-18] VITALS (9 sets, daily range): BP systolic 143–169; BP diastolic 90–112; PULSE 82–90; RESP 13–16; TEMP 98.2–99.5; O2SAT 97–98
[2025-03-18] MEDS: hydrALAZINE 20mg/ml inj. IV PRN (05:41)
[2025-03-18 05:51] LABS: BASOPHILS % (AUTO) 0 % (0-1); EOSINOPHILS % (AUTO) 0.3 % (0-6); HEMATOCRIT 26.2 % (42.0-52.0); LYMPHOCYTES # (AUTO) 0.6 X10'3 (1.1-4.8); LYMPHOCYTES % (AUTO) 8.9 % (21-51); MEAN CORPUSCULAR HEMOGLOBIN 36.7 PG (27.0-31.0); MEAN CORPUSCULAR HGB CONC 34.5 g/dL (33.0-36.5); MEAN CORPUSCULAR VOLUME 106.4 FL (78-98); MEAN PLATELET VOLUME 7.8 FL (7.4-10.4); MONOCYTES # (AUTO) 0.5 X10'3 (0-0.9); MONOCYTES % (AUTO) 7.7 % (2-12); NEUTROPHILS # (AUTO) 5.6 X10'3 (1.8-7.7); NEUTROPHILS % (AUTO) 83.1 % (42-75); PLATELET COUNT 111 X10'3 (140-440); RED BLOOD COUNT 2.46 X10'6 (4.70-6.10); RED CELL DISTRIBUTION WIDTH 13.9 % (11.5-14.5); WHITE BLOOD COUNT 6.8 X10'3 (4.5-11.0)
[2025-03-18 06:25] LABS: ALANINE AMINOTRANSFERASE 16 U/L (12-78); ALBUMIN 1.8 G/DL (3.4-5.0); ALBUMIN/GLOBULIN RATIO 0.7 (1.1-1.5); ALKALINE PHOSPHATASE 44 IU/L (46-116); ANION GAP 7 (8-16); ASPARTATE AMINO TRANSFERASE 16 U/L (10-37); BILIRUBIN,TOTAL 0.3 MG/DL (0.1-1.0); BLOOD UREA NITROGEN 16 MG/DL (7-18); BUN/CREATININE RATIO 4.7 (10.0-20.0); CALCIUM 7.8 MG/DL (8.5-10.1); CHLORIDE 104 MMOL/L (99-107); CREATININE 3.37 MG/DL (0.60-1.10); GLUCOSE 98 MG/DL (70-104); MAGNESIUM 1.7 MG/DL (1.5-2.4); POTASSIUM 4.3 MMOL/L (3.5-5.1); SODIUM 140 MMOL/L (135-145); TOTAL CARBON DIOXIDE 28.9 MMOL/L (24-32); TOTAL PROTEIN 4.4 G/DL (6.4-8.2); eCRCL 32 ML/MIN; eGFR 20 ML/MIN
[2025-03-18] MEDS ORDERED: UMEC1DIS INH (08:34)
--- NOTE | 2025-03-18 09:40 | PROGRESS NOTE ---
Progress Note Dictate Providers to CC ~ Central Line/PICC still needed: Yes Central Line/PICC Necessity: Req HD/Plasmapheresis Smart Indications Met/Not Met: F/C Indications Not Met Antibiotic Ordered?: N/A Subjective Subjective The patient is feeling better todsy. needs to start clear liquids PO. If he tolerates, this should be hopefully advanced. He was dialyzed yesterday. Objective Vitals Vital Signs Date Time Temp Pulse Resp B/P (MAP) Pulse Ox O2 Delivery O2 Flow Rate FiO2 03/18/25 14:22 145/90 (108) 03/18/25 10:00 98.4 90 16 97 Room Air 03/17/25 20:00 0.0 Lab Results: 03/18/25 0451 03/18/25 0451 Objective Vital Signs: As above General: Normal body habitus, no acute distress. Skin: No rashes, lumps, ulcers, blisters, purpura or petechiae HEENT: Anicteric sclera, RONY Neck: Supple and nontender without enlargement of the thyroid, or lymphadenopathy. Chest: Normal size and shape, no tenderness, CTA bilaterally Heart: Regular. No jugular venous distention, S1 and S2 heard , no gallop Abdomen: Soft and non tender no organomegaly,BS+ Extremities: No pedal edema Neuro: Nonfocal. Coagulation Studies Laboratory Tests Test 03/16/25 16:54 Prothrombin Time 9.7 SECONDS (9.0-12.0) INR International Normalized Ratio 0.9 INR Activated Partial Thromboplast Time 24 SECONDS (22-32) Coagulation Comments Advance Care Planning Advanced Care plannin - 30 Minutes Problem\Assessment\Plan Problems/Diagnosis: (1) Acute pancreatitis Assessment & Plan: start PO clear liquids now and advance to renal diet, when he tolerates. (2) ESRD (end stage renal disease) on dialysis Assessment & Plan: HD was done yesterday. will do again tomorrow. (3) Alcoholism Assessment & Plan: needs psychiatry consultation as he has been feeling depressed and worthless, ever since he went on disability and dialysis. ON humanitarian grounds, kindly consider getting psychiatrist to career technical counselor him PLEASE. Sepsis Screening Skin Color: Normal SANDRA MAE MD March 18, 2025 09:40
[2025-03-18] MEDS: cloNIDine 0.1 mg tablet PO SCH (12:16)
[2025-03-18] MEDS ORDERED: LORazepam 1 MG tablet PO PRN (16:40)
[2025-03-18] MEDS ORDERED: LORazepam 2 mg/ml vial IV PRN (16:40)
--- NOTE | 2025-03-18 17:54 | PROGRESS NOTE ---
Daily Progress Note Providers to CC ~ feels better today, better appetite better sleep Central Line/PICC still needed: No Smart-Non Protocol Smart Indications Met/Not Met: F/C Indications Not Met Antibiotic Timeout Antibiotic Ordered?: No MRSA Education MRSA Education Provided to pt: No Subjective As above Objective Vital Signs Date Time Temp Pulse Resp B/P (MAP) Pulse Ox O2 Delivery O2 Flow Rate FiO2 03/18/25 17:31 88 143/96 (112) 03/18/25 10:00 98.4 16 97 Room Air 03/17/25 20:00 0.0 Vital signs, stable ,afebrile. Pulse Oximetry reflects adequate oxygenation. General: well developed, well nourished. Awake , alert, and oriented x4, resting comfortably in the bed, in no acute distress . Skin: Warm, dry, no pallor, no rash or petechiae. HEENT: Atraumatic, normocephalic, EOMI, anicteric sclera B; pink conjunctiva; PERRLA, normal oropharynx, moist oral and nasal mucosa. Tympanic membrane , nose , throat clear. Neck: Trachea midline. Supple, full range of motion, no JVD, bruit , hepatojugular reflex , lymphadenopathy or masses, or other lesions Cardiac: Regular rhythm, regular rate no murmurs, rubs, or gallops. Normal S1 and S2, no S3 noticed. PMI is normal. Respiratory: Equal breath sounds bilaterally, no tachypnea; lungs clear to auscultation bilaterally, no wheezing ,rub or rales, or crackles. Chest wall is symmetric and without deformity. No signs of trauma. Chest wall is nontender. No signs of respiratory distress. Resonance is normal upon percussion bilaterally. Gastrointestinal: Abdomen symmetric, non-distended, soft, non-tender, normal bowel sounds x4 quadrant, normoactive, no hepatosplenomegaly , no masses , no bruit, no flank pain bilaterally. No voluntary guarding, rebound, or rigidity. No tenderness to percussion. No pulsatile masses. Equal femoral pulses. No Flores's sign or McBurney point tenderness. Back; no CVA tenderness bilaterally, no deformities. Neck and back are without deformity as well. No tenderness noted on palpation of the spinous processes. Spinous processes are midline. Cervical, thoracic, and lumbar paraspinal muscles are not tender and are without spasm. : normal external genitalia, without lesions, swelling, masses or tenderness. Musculoskeletal: Extremities, normal range of motion, non-tender, muscle strength 5/5 x 4. Negative Homans signs bilaterally on lower extremity. Distal pulses full symmetrical, no clubbing, cyanosis , edema. Neurological: Speech is clear, alert, and oriented x 4. No motor or sensory deficit, deep tendon reflexes normal, cerebellar intact. Cranial nerves II-XII intact. Psych: Alert and or appropriate, normal affect. Vascular: Good distal pulses, which are equal x4; capillary refill less than 2 seconds. Lymphatic, no lymphadenopathy. Result Diagram: 03/18/2545003/18/25 045 Coagulation Studies Laboratory Tests Test 03/16/25 16:54 Prothrombin Time 9.7 SECONDS (9.0-12.0) INR International Normalized Ratio 0.9 INR Activated Partial Thromboplast Time 24 SECONDS (22-32) Coagulation Comments Problem\Assessment\Plan Assessment Chronic alcohol abuse including ongoing chronic pancreatitis secondary to above in exacerbation Acute pancreatitis Cystic lesion pancreatic head, rule out cancer Acute diarrhea nonbloody End-stage renal disease secondary to polycystic kidney disease On peritoneal hemodialysis, at home Hypertension fair control Anemia Additional comorbidities, COPD, ex-smoker, history of marijuana use, chronic CHF diastolic ejection fraction 70% 2023, hepatic steatosis Non IV fluids, keep patient well hydrated euvolemic NPO Alcohol withdrawal protocol Additional lab work pending Substance use navigator consult I reconciled home medications Nephrology doctor on case appreciate assistance and expertise IV Protonix DVT gastropathy prophylaxis addressed Sepsis Screening Reassessment Date: March 18, 2025 Skin Color: Normal Date of Service: March 18, 2025 Billing Provider: BARON MCCALL MD Common Visit Codes: [id number] INP/OBS CARE(HIGH) BARON MCCALL MD March 18, 2025 17:54
[2025-03-18] MEDS: ondansetron 4mg rapidly disintigrating tab PO PRN (19:42)
[2025-03-19] VITALS (13 sets, daily range): BP systolic 140–170; BP diastolic 93–114; PULSE 85–96; RESP 14–18; TEMP 97.7–98.5; O2SAT 96–100
[2025-03-19 06:35] LABS: BASOPHILS % (AUTO) 0.1 % (0-1); EOSINOPHILS % (AUTO) 0.3 % (0-6); HEMATOCRIT 25.2 % (42.0-52.0); HEMOGLOBIN 8.6 g/dl (14.0-17.9); LYMPHOCYTES # (AUTO) 0.4 X10'3 (1.1-4.8); LYMPHOCYTES % (AUTO) 6.4 % (21-51); MEAN CORPUSCULAR HEMOGLOBIN 36.1 PG (27.0-31.0); MEAN CORPUSCULAR HGB CONC 34.2 g/dL (33.0-36.5); MEAN CORPUSCULAR VOLUME 105.4 FL (78-98); MONOCYTES # (AUTO) 0.7 X10'3 (0-0.9); NEUTROPHILS # (AUTO) 5.4 X10'3 (1.8-7.7); NEUTROPHILS % (AUTO) 83.2 % (42-75); PLATELET COUNT 106 X10'3 (140-440); RED BLOOD COUNT 2.39 X10'6 (4.70-6.10); RED CELL DISTRIBUTION WIDTH 13.8 % (11.5-14.5); WHITE BLOOD COUNT 6.5 X10'3 (4.5-11.0)
[2025-03-19 07:08] LABS: ALANINE AMINOTRANSFERASE 14 U/L (12-78); ALBUMIN 1.7 G/DL (3.4-5.0); ALBUMIN/GLOBULIN RATIO 0.6 (1.1-1.5); ALKALINE PHOSPHATASE 41 IU/L (46-116); ANION GAP 5 (8-16); ASPARTATE AMINO TRANSFERASE 18 U/L (10-37); BILIRUBIN,TOTAL 0.3 MG/DL (0.1-1.0); BLOOD UREA NITROGEN 17 MG/DL (7-18); BUN/CREATININE RATIO 4.3 (10.0-20.0); CALCIUM 7.7 MG/DL (8.5-10.1); CHLORIDE 101 MMOL/L (99-107); CREATININE 3.99 MG/DL (0.60-1.10); GLUCOSE 93 MG/DL (70-104); MAGNESIUM 1.3 MG/DL (1.5-2.4); SODIUM 130 MMOL/L (135-145); TOTAL PROTEIN 4.4 G/DL (6.4-8.2); eCRCL 27 ML/MIN; eGFR 16 ML/MIN
[2025-03-19] MEDS: magnesium Cl slow-release 64mg tablet PO PRN (08:18)
[2025-03-19] MEDS: cloNIDine 0.1 mg tablet PO SCH (13:31)
[2025-03-19] MEDS ORDERED: albumin (human) 25% 100ml IV 100 ML IV PRN (13:40)
--- NOTE | 2025-03-19 13:42 | PROGRESS NOTE ---
Progress Note Dictate Providers to CC ~ Central Line/PICC still needed: Yes Central Line/PICC Necessity: Req HD/Plasmapheresis Smart Indications Met/Not Met: F/C Indications Not Met Antibiotic Ordered?: N/A Subjective Subjective He has temp dialysis cath. This will be discontinued, once a decision is made by hospitalist to discharge him. He CANNOT GO HOME with this temporary dialysis cath. He will continue with his PD once he leaves the hospital. Objective Vitals Vital Signs Date Time Temp Pulse Resp B/P (MAP) Pulse Ox O2 Delivery O2 Flow Rate FiO2 03/19/25 19:25 85 16 153/104 (120) 96 Room Air 03/19/25 17:55 98.5 03/18/25 20:00 0.0 Lab Results: 03/19/25 0608 03/19/25 0608 Objective Vital Signs: As above General: Normal body habitus, no acute distress. Skin: No rashes, lumps, ulcers, blisters, purpura or petechiae HEENT: Anicteric sclera, RONY Neck: Supple and nontender without enlargement of the thyroid, or lymphadenopathy. Chest: Normal size and shape, no tenderness, CTA bilaterally Heart: Regular. No jugular venous distention, S1 and S2 heard , no gallop Abdomen: Soft and non tender no organomegaly,BS+ Extremities: No pedal edema Neuro: Nonfocal. Coagulation Studies Laboratory Tests Test 03/16/25 16:54 Prothrombin Time 9.7 SECONDS (9.0-12.0) INR International Normalized Ratio 0.9 INR Activated Partial Thromboplast Time 24 SECONDS (22-32) Coagulation Comments Advance Care Planning Advanced Care plannin - 30 Minutes Problem\Assessment\Plan Problems/Diagnosis: (1) Acute pancreatitis Assessment & Plan: on PO diet. lipase continues to come down. alcoholic pancreatitis. (2) ESRD (end stage renal disease) on dialysis Assessment & Plan: HD today. orders in place. (3) Alcoholism Assessment & Plan: needs psychiatry consultation as he has been feeling depressed and worthless, ever since he went on disability and dialysis. ON humanitarian grounds, kindly consider getting psychiatrist to college admissions counselor him PLEASE. Sepsis Screening Skin Color: Normal SANDRA MAE MD March 19, 2025 13:42
[2025-03-19] MEDS: HYDROcodone/acetaminophen 5mg/325mg tablet PO PRN (15:51)
--- NOTE | 2025-03-19 18:49 | PROGRESS NOTE ---
Daily Progress Note Providers to CC ~ no new complaint today, feeling better, ready for hemodialysis today Central Line/PICC still needed: No Smart-Non Protocol Smart Indications Met/Not Met: F/C Indications Not Met Antibiotic Timeout Antibiotic Ordered?: Yes MRSA Education MRSA Education Provided to pt: Yes Subjective As above Objective Vital Signs Date Time Temp Pulse Resp B/P (MAP) Pulse Ox O2 Delivery O2 Flow Rate FiO2 03/19/25 18:25 91 16 140/96 (111) 98 Room Air 03/19/25 17:55 98.5 03/18/25 20:00 0.0 Vital signs, stable ,afebrile. Pulse Oximetry reflects adequate oxygenation. General: well developed, well nourished. Awake , alert, and oriented x4, resting comfortably in the bed, in no acute distress . Skin: Warm, dry, no pallor, no rash or petechiae. HEENT: Atraumatic, normocephalic, EOMI, anicteric sclera B; pink conjunctiva; PERRLA, normal oropharynx, moist oral and nasal mucosa. Tympanic membrane , nose , throat clear. Neck: Trachea midline. Supple, full range of motion, no JVD, bruit , hepatojugular reflex , lymphadenopathy or masses, or other lesions Cardiac: Regular rhythm, regular rate no murmurs, rubs, or gallops. Normal S1 and S2, no S3 noticed. PMI is normal. Respiratory: Equal breath sounds bilaterally, no tachypnea; lungs clear to auscultation bilaterally, no wheezing ,rub or rales, or crackles. Chest wall is symmetric and without deformity. No signs of trauma. Chest wall is nontender. No signs of respiratory distress. Resonance is normal upon percussion bilaterally. Gastrointestinal: Abdomen symmetric, non-distended, soft, non-tender, normal bowel sounds x4 quadrant, normoactive, no hepatosplenomegaly , no masses , no bruit, no flank pain bilaterally. No voluntary guarding, rebound, or rigidity. No tenderness to percussion. No pulsatile masses. Equal femoral pulses. No Flores's sign or McBurney point tenderness. Back; no CVA tenderness bilaterally, no deformities. Neck and back are without deformity as well. No tenderness noted on palpation of the spinous processes. Spinous processes are midline. Cervical, thoracic, and lumbar paraspinal muscles are not tender and are without spasm. : normal external genitalia, without lesions, swelling, masses or tenderness. Musculoskeletal: Extremities, normal range of motion, non-tender, muscle strength 5/5 x 4. Negative Homans signs bilaterally on lower extremity. Distal pulses full symmetrical, no clubbing, cyanosis , edema. Neurological: Speech is clear, alert, and oriented x 4. No motor or sensory deficit, deep tendon reflexes normal, cerebellar intact. Cranial nerves II-XII intact. Psych: Alert and or appropriate, intermittently depressed Vascular: Good distal pulses, which are equal x4; capillary refill less than 2 seconds. Lymphatic, no lymphadenopathy. Result Diagram: 03/19/25 0608 03/19/25 06 Coagulation Studies Laboratory Tests Test 03/16/25 16:54 Prothrombin Time 9.7 SECONDS (9.0-12.0) INR International Normalized Ratio 0.9 INR Activated Partial Thromboplast Time 24 SECONDS (22-32) Coagulation Comments Problem\Assessment\Plan Assessment Chronic alcohol abuse including ongoing chronic pancreatitis secondary to above in exacerbation Acute pancreatitis Cystic lesion pancreatic head, rule out cancer Acute diarrhea nonbloody End-stage renal disease secondary to polycystic kidney disease On peritoneal hemodialysis, at home Hypertension fair control Anemia Additional comorbidities, COPD, ex-smoker, history of marijuana use, chronic CHF diastolic ejection fraction 70% 2023, hepatic steatosis Depression on no medications Plan IV fluids, keep patient well hydrated euvolemic NPO Alcohol withdrawal protocol Additional lab work pending Substance use navigator consult I reconciled home medications Nephrology doctor on case appreciate assistance and expertise Spoke with psychiatrist, TARUN Velazco; we will see patient in the morning IV Protonix Please do not discharge patient without psychiatrist evaluation DVT gastropathy prophylaxis addressed Sepsis Screening Reassessment Date: March 19, 2025 Skin Color: Normal Date of Service: March 19, 2025 Billing Provider: BARON MCCALL MD Common Visit Codes: [id number] INP/OBS CARE(HIGH) BARON MCCALL MD March 19, 2025 18:49
[2025-03-19] MEDS: EPOETIN ALFA-EPBX 20,000 UNIT/ML 1 ML MDV IV ONE (20:08)
[2025-03-19] MEDS: heparin 1,000unit/ml 10ml vial 10 ML IV ONE (20:11)
[2025-03-19] MEDS: heparin 1,000 units/ml 10ml inj IV ONE (20:12)
[2025-03-19] MEDS: heparin 1,000 units/ml 10ml inj HE ONE ×2 (20:12→20:13)
[2025-03-19] MEDS: morphine 2 MG/ML inj. syringe IV PRN (21:45)
[2025-03-20 05:21] LABS: HBSAG SCREEN Negative (Negative)
[2025-03-20 06:00] VITALS: BP 157/111; PULSE 95; RESP 16; TEMP 98.2; O2SAT 98
[2025-03-20 06:10] LABS: BASOPHILS % (AUTO) 0.1 % (0-1); EOSINOPHILS % (AUTO) 0.5 % (0-6); HEMATOCRIT 25.3 % (42.0-52.0); HEMOGLOBIN 8.7 g/dl (14.0-17.9); LYMPHOCYTES # (AUTO) 0.5 X10'3 (1.1-4.8); LYMPHOCYTES % (AUTO) 10.6 % (21-51); MEAN CORPUSCULAR HEMOGLOBIN 36.4 PG (27.0-31.0); MEAN CORPUSCULAR HGB CONC 34.5 g/dL (33.0-36.5); MEAN CORPUSCULAR VOLUME 105.5 FL (78-98); MEAN PLATELET VOLUME 7.2 FL (7.4-10.4); MONOCYTES # (AUTO) 0.9 X10'3 (0-0.9); MONOCYTES % (AUTO) 16.9 % (2-12); NEUTROPHILS # (AUTO) 3.7 X10'3 (1.8-7.7); NEUTROPHILS % (AUTO) 71.9 % (42-75); PLATELET COUNT 96 X10'3 (140-440); RED CELL DISTRIBUTION WIDTH 13.7 % (11.5-14.5); WHITE BLOOD COUNT 5.2 X10'3 (4.5-11.0)
[2025-03-20 06:25] LABS: ALANINE AMINOTRANSFERASE 12 U/L (12-78); ALBUMIN 1.6 G/DL (3.4-5.0); ALBUMIN/GLOBULIN RATIO 0.6 (1.1-1.5); ALKALINE PHOSPHATASE 40 IU/L (46-116); ANION GAP 4 (8-16); ASPARTATE AMINO TRANSFERASE 18 U/L (10-37); BILIRUBIN,TOTAL 0.3 MG/DL (0.1-1.0); BLOOD UREA NITROGEN 11 MG/DL (7-18); BUN/CREATININE RATIO 3.8 (10.0-20.0); CHLORIDE 103 MMOL/L (99-107); CREATININE 2.91 MG/DL (0.60-1.10); GLUCOSE 110 MG/DL (70-104); MAGNESIUM 1.5 MG/DL (1.5-2.4); POTASSIUM 3.9 MMOL/L (3.5-5.1); SODIUM 133 MMOL/L (135-145); TOTAL CARBON DIOXIDE 25.9 MMOL/L (24-32); TOTAL PROTEIN 4.3 G/DL (6.4-8.2); eCRCL 37 ML/MIN; eGFR 23 ML/MIN
[2025-03-20 07:10] LABS: PLATELET ESTIMATE DECREASED; TOTAL CELLS COUNTED 100
[2025-03-20 08:00] VITALS: RESP 16; O2SAT 98
--- NOTE | 2025-03-20 10:00 | PROGRESS NOTE- Residence ---
Progress Note - Resident Providers to CC Resident Creating Document: CELESTE RANDHAWA RES CC: DARREN MAE MD ~ Central Line/PICC still needed: No Antibiotic Timeout Antibiotic Ordered?: No Subjective Patient is seen this morning. States his abdominal pain and vomitings is relieved. eating food without any nausea. Hopes to go home today Objective Vital Signs Date Time Temp Pulse Resp B/P (MAP) Pulse Ox O2 Delivery O2 Flow Rate FiO2 03/20/25 06:00 98.2 95 16 157/111 (126) 98 Room Air 03/19/25 20:00 0.0 Result Diagram: 03/20/2553003/20/25530 General: Adult male, AAO x4, not in apparent distress Head: Normocephalic with an atraumatic Eyes: Pupils- 3mm, reacting to light, conjunctiva- anicteric Nose and throat: No polyps, septum- normal, no mucosal ulcers Neck: Supple, no lymphadenopathy, no carotid bruit Respiratory: No use of accessory muscles of respiration, Bilateral normal breath sounds heard. No wheeze, rhochi or creps Cardiac: S1-S2 heard, rythm regular, no gallop/murmur Abdomen: non distended, no tenderness, no organomegaly, bowel sounds- heard, RLQ PD cath present Extremities: no clubbing, no pedal edema, no deformities, peripheral pulses- 2+ Skin: warm and dry, no rash, no purpura Neuro: No focal deficit, gross cranial nerve exam- normal Coagulation Studies Laboratory Tests Test 03/16/25 16:54 Prothrombin Time 9.7 SECONDS (9.0-12.0) INR International Normalized Ratio 0.9 INR Activated Partial Thromboplast Time 24 SECONDS (22-32) Coagulation Comments Advance Care Planning Advanced Care plannin - 30 Minutes Assessment Assessment 49-year-old male with history of ESKD on home PD, admitted for alcoholic pancreatitis. 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 -currently on clonidine 0.2 t.i.d. Acute pancreatitis Resolved We will stop IV fluids Thank you for involving us in the patient get. We will continue to follow along with you. Celeste Randhawa MD IM resident Attending Note: CAre plan reviewed with the resident. Agree with above. patient is getting discharged and the TEmp dialysis cath will be removed prior to his discharge. He will continue with his PD at home as usual. Acute pancreatitis is better. depression - to be consulted by , psychiatrist prior to discharge as promised by to me yesterday. Darren Mae MD Nephrology Date of Service: March 20, 2025 Billing Provider: DARREN MAE MD, HARIVAR[place], [facility] March 20, 2025 10:00 DARREN MAE MD March 20, 2025 20:04
[2025-03-20] MEDS ORDERED: ESCITALOPRAM 10 mg tablet 10 MG TABLET PO ONE (11:10)
[2025-03-20] MEDS ORDERED: CLON0.1T2 PO (11:13)
--- NOTE | 2025-03-20 12:23 | DISCHARGE SUMMARY ---
Discharge Summary Providers to CC ~ Discharge Summary Admission Diagnosis: Acute pancreatitis Hospital Course DATE OF ADMISSION: 03/16/25 DATE OF DISCHARGE: 03/20/25 Discharge Diagnosis\Comment: Chronic alcoholism Acute on chronic pancreatitis, alcohol-induced Cystic lesion pancreatic head, rule out cancer Acute diarrhea End-stage renal disease secondary to polycystic kidney disease on PD Hypertension Anemia COPD, not in exacerbation Hx of substance abuse Chronic diastolic heart failure Hepatic steatosis Depression Class I obesity Operations\Procedures: None Consultants: Carpet Loom Fixer Darren Leiva Complications: None Condition on DC: Stable New Medications: Clonidine HCl (Clonidine HCl) 0.1 Mg Tablet 0.1 MG PO TID PRN for high blood pressure for 30 Days, #90 TAB Take 1 tablet by mouth three times daily as needed for SBP>160 Folic Acid* (Folic Acid*) Y Tab 1 MG PO DAILY for 90 Days, #90 TAB [thiamine tablet] () 100 MG TABLET 100 MG PO DAILY for 90 Days, #90 Continued Medications: Allopurinol (Zyloprim) 100 Mg Tablet 2 TAB PO DAILY for 30 Days, #30 TAB 0 Refills Diltiazem HCl (Diltiazem 24Hr Cd) 180 Mg Cap.er.24h 1 TAB PO BID Lisinopril* (Lisinopril*) 40 Mg Tablet 1 TAB PO QAM for 30 Days, #30 TAB Omeprazole (Prilosec) 40 Mg Capsule 1 CAP PO DAILY Sodium Bicarbonate (Antacid) 650 Mg Tablet 1 TAB PO DAILY Trazodone HCl (Trazodone HCl) 100 Mg Tablet 1 TAB PO HS for 30 Days, #30 TAB Umeclidinium Brm/Vilanterol Tr (Anoro Ellipta 62.5-25 Mcg INH) 62.5 Mcg-25 Mcg/Actuation Disk.w.dev 1 PUFFS INH DAILY Discontinued Medications: Furosemide (Furosemide) 40 Mg Tablet 1 TAB PO DAILY Discharge Summary: Morales Castro is a 49-year-old man with history of chronic alcoholism, polycystic kidney disease, ESRD on peritoneal dialysis, chronic pancreatitis, COPD, marijuana use, chronic diastolic heart failure who presented to the ED with chief complaint progressively worsening abdominal pain, nausea, vomiting and nonbloody diarrhea x 2 days. Diagnostic findings were notable for CT abd omen/pelvis indicating pancreatitis, elevated lipase, hyponatremia, renal function consistent with ESRD. Patient was treated with intravenous fluids, supportive care, and was put on alcohol withdrawal protocol. Case was consulted with service department manager Dr. Phelps who started hemodialysis via temporary catheter. Patient did not experience further complications throughout the entire hospital stay and made a good recovery. Abdominal pain, nausea, vomiting improved significantly with treatment. Patient was seen and examined on the day of discharge. On day of discharge, vss and labs unremarkable. All labs, diagnostic workups, discharge plan discussed with patient in details during visit before discharge. All questions and concerns answered to the best of my professional knowledge. Patient refused Psychiatry evaluation. Patient is to be discharged to home to self and to follow-up with PCP and service department manager Dr. Phelps within 2 weeks. Patient is instructed to abstain from alcohol use and to continue PD. Physical Exam General: A&Ox 3, NAD HEENT: Normocephalic, PERRLA Neck: Supple, trachea midline, no JVD Chest: Clear to auscultation bilaterally Cardiovascular: RRR, S1&S2 GI: Soft and nontender Extremities: No cyanosis/clubbing/or edema SWITCH CREW SUPERVISOR: CN II-XII intact, no focal deficits Musculoskeletal: No paraspinal muscle tenderness, no muscle spasm Skin: Warm and intact *Problems/Diagnosis: (1) Acute pancreatitis Status: Acute (2) ESRD (end stage renal disease) on dialysis Status: Chronic (3) Alcoholism Status: Chronic Total Time Spent on D/C: > 30 Minutes Date of Service: March 20, 2025 Billing Provider: WINDY THOMAS Common Visit Codes: 20107-XZE/OBS DISCH DAY >30min WINDY THOMAS March 20, 2025 12:23
[2025-03-20] MEDS ORDERED: thiamine tablet PO (12:28)
[2025-03-20] MEDS ORDERED: FOLI1TAB27 PO (12:28)
[2025-03-20 13:07] VITALS: BP_SYST 163; PULSE 86
[2025-03-20] MEDS: amLODIPine 5mg tablet PO ONE (13:07)
[2025-03-20] MEDS ORDERED: LORazepam 2 mg/ml vial IV PRN (16:40)
[2025-03-20] MEDS ORDERED: LORazepam 1 MG tablet PO PRN (16:40)
[2025-03-20] MEDS ORDERED: diltiazem CD 180mg cap (once-daily) PO SCH (20:00)
[2025-03-20] MEDS ORDERED: traZODone 50mg tablet PO SCH (21:00)
[2025-03-21] MEDS ORDERED: thiamine 100mg tablet PO SCH (08:00)
[2025-03-21] MEDS ORDERED: ESCITALOPRAM 10 mg tablet 10 MG TABLET PO SCH (08:00)
[2025-03-21] MEDS ORDERED: amLODIPine 5mg tablet PO SCH (08:00)
[2025-03-21] MEDS ORDERED: folic acid 1mg tablet PO SCH (08:00)
== END 2025-03-20 14:30 | disposition home or self-care (01) | DRG 435 ==
LOC: ER 11:28 → ED HOLD 16:45 → ORTHO 4S 21:00
PROVIDERS: ADMIT Family Medicine; ATTEND Family Medicine
PROC: 02HV33Z Insertion of Infusion Device into Superior Vena Cava, Percutaneous Approach (ICD-10-PCS; principal; 2025-03-17)
PROC: B548ZZA Ultrasonography of Superior Vena Cava, Guidance (ICD-10-PCS; 2025-03-17)
PROC: 5A1D70Z Performance of Urinary Filtration, Intermittent, Less than 6 Hours Per Day (ICD-10-PCS; 2025-03-17)
PROC: 5A09357 Assistance with Respiratory Ventilation, Less than 24 Consecutive Hours, Continuous Positive Airway Pressure (ICD-10-PCS; 2025-03-17)
PROC: 5A09357 Assistance with Respiratory Ventilation, Less than 24 Consecutive Hours, Continuous Positive Airway Pressure (ICD-10-PCS; 2025-03-18)
PROC: 5A1D70Z Performance of Urinary Filtration, Intermittent, Less than 6 Hours Per Day (ICD-10-PCS; 2025-03-19)
PROC: 5A09357 Assistance with Respiratory Ventilation, Less than 24 Consecutive Hours, Continuous Positive Airway Pressure (ICD-10-PCS; 2025-03-19)
DX: C25.0 Malignant neoplasm of head of pancreas (principal); K85.20 Alcohol induced acute pancreatitis without necrosis or infection; N18.6 End stage renal disease; I13.2 Hypertensive heart and chronic kidney disease with heart failure and with stage 5 chronic kidney disease, or end stage renal disease; I50.32 Chronic diastolic (congestive) heart failure; Q61.3 Polycystic kidney, unspecified; E87.1 Hypo-osmolality and hyponatremia; K86.0 Alcohol-induced chronic pancreatitis; D53.9 Nutritional anemia, unspecified; J44.9 Chronic obstructive pulmonary disease, unspecified; F32.A Depression, unspecified; F10.20 Alcohol dependence, uncomplicated; K76.0 Fatty (change of) liver, not elsewhere classified; Z79.899 Other long term (current) drug therapy; Z87.891 Personal history of nicotine dependence; Z99.2 Dependence on renal dialysis
CPT/HCPCS: 36415; 71045; 74176; 80053; 80061; 80305; 80320; 81001; 83036; 83690; 83735; 83880; 84100; 84443; 85007; 85025; 85610; 85730; 86301; 87081; 87340; 96374; 96375; 96376; 99285; A6258; A6449; C1752; E1594; G0257; G0378; J0360; J1644; J2003; J2270; J2405; J2470; J3411; J3475; J3490; J7030; J7120; Q4081